=== PATIENT | male | born 1970 | race Caucasian/White ===

== ENCOUNTER 2024-12-18 18:56 | Emergency (ER) | payer SELFPAY ==
[2024-12-18 19:01] VITALS: BP 147/97
[2024-12-18 19:49] LABS: ALT (SGPT) 36 U/L (0-50); AST (SGOT) 41 U/L (17-59); Albumin 4.6 g/dl (3.5-5.0); Alkaline Phosphatase 83 U/L (38-126); Blood Urea Nitrogen 10 mg/dl (9-20); Calcium 9.4 mg/dl (8.4-10.2); Carbon Dioxide 28 mmol/L (22-30); Chloride 96 mmol/L (98-107); Glucose 101 mg/dl (70-99); Potassium 4.7 mmol/L (3.5-5.1); Sodium 136 mmol/L (135-145); Total Bilirubin 0.7 mg/dl (0.2-1.3); Total Protein 7.7 g/dl (6.3-8.2); eGFR > 60.00
[2024-12-18 19:59] LABS: Alcohol 345 mg/dl
[2024-12-18 20:00] LABS: Hematocrit 46.4 % (39.0-52.0); Hemoglobin 16.1 g/dL (13.0-18.0); Mean Corp Hgb Conc. 34.7 g/dL (33.0-37.0); Mean Corpuscular Hgb 32.1 pg (27.0-31.0); Mean Corpuscular Volume 92.6 fL (80.0-94.0); Mean Platelet Volume 9.3 fL (7.4-10.4); Platelet Count 274 10^3/uL (130-400); Red Blood Cell Count 5.01 10^6/uL (4.70-6.10); Red Cell Dist. Width 13.1 % (11.5-14.5); White Blood Cell Count 9.3 10^3/uL (4.8-10.8)
[2024-12-18 20:01] LABS: Absolute Neutrophils -Man Diff 5.3 10^3/uL (1.4-6.5); Atypical Lymphocytes 10 %; Band Neutrophils 0 % (0-3); Eosinophils 2 % (0-6); Lymphocytes 17 % (20-51); Monocytes 13 % (2-9); Segmented Neutrophils 58 % (42-75)
[2024-12-18 20:40] LABS: Normal RBC Morphology Yes; Platelets Checked Yes; Total Cells Counted 100
--- NOTE | 2024-12-18 20:51 | ED.GENMED ---
History of Present Illness
General
Chief Complaint: Alcohol Problem
Source: patient
Exam Limitations: none
Time Seen by Provider: 12/18/24 20:26
History of Present Illness
History of Present Illness:
54yoM with a history of alcohol abuse, anxiety, and depression presenting for detox evaluation. Patient drinks approximately 12-16 beers a day. Last drink was at dinnertime this evening. He is presenting to the ED requesting detox and treatment.
He denies any withdrawal symptoms currently. He does take Xanax as needed at home and typically takes 1-2 doses a week. He denies any other substance use. He reports a history of 1 prior withdrawal seizure in the past.
Past History
Past History
ED Past Medical History: Seizures and Psychiatric (anxiety/depression/ alcoholism)
ED Past Surgical History: None
Social History
Tobacco: Former smoker
Alcohol: Binge drinker (Beer 6-6 packs)
Drug: None
Personal: Single
Living: homeless (Living in his car right now)
Employment: Not employed
Phy Exam
General Physical Exam
General Presentation: well appearing and no apparent distress
General age: appears stated age
General Skin: warm and dry
General Habitus: normal
General Mental: alert
ENT Exam
ENT Exam: normocephalic
Cardiovascular Exam
Cardiovascular Exam: tachycardia
Pulmonary Exam
Pulmonary Exam: lungs clear, no respiratory distress, no rales, no crackles and no rhonchi
Neurological Exam
Neurological Exam: alert
Skin Exam
Skin Exam: normal color and warm/dry
Psychiatric Exam
Psychiatric Exam: normal mood/affect
Scores
Withdrawal Assessment of Alcohol
Withdrawal Assessment Completed?: Not applicable
Course
Orders/Labs/Results
Orders:
Orders
12/18/24 19:08
Alcohol Urgent
Comprehensive Metabolic Panel Urgent
Magnesium Urgent
Comment: ADD ON
12/18/24 19:10
Complete Blood Count/With Diff Urgent
Manual Differential Urgent
12/18/24 20:51
Add On- LAB Urgent
Tests Added?: magnesium
Abnormal Lab Results
12/18/24 12/18/24
19:08 19:10
MCH 32.1 H pg
(27.0-31.0)
Lymphocytes (Manual) 17 L %
(20-51)
Monocytes (Manual) 13 H %
(2-9)
Chloride 96 L mmol/L
(98-107)
Glucose 101 H mg/dl
(70-99)
12/18/24 19:10
12/18/24 19:08
Vital Signs
Initial and Last Documented VS:
Initial Vital Signs
Temp Pulse Resp BP Pulse Ox
98.6 F 110 20 147/97 98
12/18/24 19:01 12/18/24 19:01 12/18/24 19:01 12/18/24 19:01 12/18/24 19:01
Last Documented Vital Signs
Temp Pulse Resp BP Pulse Ox
98.6 F 110 20 147/97 98
12/18/24 19:01 12/18/24 19:01 12/18/24 19:01 12/18/24 19:01 12/18/24 19:01
MDM/Problems Addressed
Differential Diagnosis Includes:
54yoM presenting for detox evaluation. Drinks 12-16 beers daily. Last drink this evening. No current withdrawal symptoms. Heart rate 110. Remainder of vitals are normal. Patient is well-appearing in no distress. Differential diagnosis
includes but is not limited to: Alcohol intoxication, alcohol withdrawal, dehydration, electrolyte abnormality
Initial ED plan: Lab work obtained in triage. Chloride 96. Remainder of electrolytes are normal. Creatinine and LFTs within normal limits. Alcohol level 345. Will consult [facility] to assist with detox placement.
*Critical Care Note
Total Time (30-74mins, 75-104mins- exclusive of procedures): Not Applicable
Update Note
Update Note:
Informed by nursing staff that patient eloped prior to [facility] assessment. Patient drove here via private vehicle. Given EtOH level of 345, police were called and notified of situation. Police to go to his address for welfare check.
ED Attending Note
-
Portions of this chart may have been created with voice recognition software.� Occasional wrong word or��sound alike� substitutions may have occurred due to the inherent limitations of voice recognition software.
Discharge Plan
Departure
Patient Disposition: Against Medical Advice
Discharge Problem:
Alcohol intoxication
Prescriptions:
No Action
paroxetine HCl 20 mg tablet
20 mg PO DAILY
thiamine HCl (vitamin B1) 100 mg Tablet
100 mg PO BID Qty: 0 0RF
folic acid 1 mg Tablet
1 mg PO DAILY Qty: 0 0RF
metoprolol tartrate 25 mg Tablet
25 mg PO BID Qty: 0 0RF
Referrals:
Sanjeev Valero MD [Family Provider] -
Interventions
Interventions:
*Risk Screen - Suicide Last Done: 12/18/24 19:01
*General Assessment Last Done: 12/18/24 19:01
*Neglect/Abuse Screening Last Done: 12/18/24 19:01
ED- Neurological Assessment Last Done: 12/18/24 20:49
ED-Psychological Assessment Last Done: 12/18/24 20:49
Discharge Date and Time
Discharge Date/Time: 12/18/24 21:24
Print Language: ROMANSH
--- NOTE | 2024-12-18 21:16 | PTCARENOTE ---
Patient left emergency department
[2024-12-18 21:22] LABS: Magnesium 2.1 mg/dl (1.6-2.3)
== END 2024-12-18 21:24 | disposition left against medical advice (07) ==
LOC: EMR 18:56
PROVIDERS: Emergency Medicine; EMERGENCY PHYSICIAN Emergency Medicine; FAMILY PHYSICIAN Internal Medicine
DX: F10.129 Alcohol abuse with intoxication, unspecified (principal); Y90.9 Presence of alcohol in blood, level not specified; F41.8 Other specified anxiety disorders; Z87.891 Personal history of nicotine dependence
CPT/HCPCS: 99283; 80053; 82077; 83735; 85025

== ENCOUNTER 2024-12-23 23:29 | Emergency (ER) | payer SELFPAY ==
[2024-12-23 23:32] VITALS: BP 150/108
[2024-12-23 23:47] VITALS: BMI 34.0
--- NOTE | 2024-12-23 23:59 | ED.GENMED ---
History of Present Illness
General
Chief Complaint: Suicidal Ideation
Source: patient
Exam Limitations: none
Time Seen by Provider: 12/23/24 23:39
History of Present Illness
History of Present Illness:
See MDM
Past History
Past History
ED Past Medical History: Seizures and Psychiatric (anxiety/depression/ alcoholism)
ED Past Surgical History: None
Social History
Tobacco: Former smoker
Alcohol: Binge drinker (Beer 6-6 packs)
Drug: None
Personal: Single
Living: homeless (Living in his car right now)
Employment: Not employed
Phy Exam
Physical Exam
Physical Exam:
See MDM
Course
Orders/Labs/Results
Orders:
Orders
12/23/24 23:36
1:1 Observation - Suicide/ Violent Behavior As Directed
Crisis Consult Urgent
Reason for Consult: SUICIDAL IDEATION/ALCOHOL ABUSE
12/23/24 23:57
Alcohol Urgent
Complete Blood Count/With Diff Urgent
Comprehensive Metabolic Panel Urgent
12/24/24 00:32
Urine Drug Abuse Screen Urgent
Date Specimen was Collected: 12/24/24
Time Specimen was Collected: 00:30
Abnormal Lab Results
12/24/24
00:10
MCH 31.9 H pg
(27.0-31.0)
Neutrophils % 37.1 L %
(42.2-75.2)
Lymphocytes % 53.3 H %
(20.5-51.1)
BUN 7 L mg/dl
(9-20)
Glucose 134 H mg/dl
(70-99)
Total Protein 8.4 H g/dl
(6.3-8.2)
12/24/24 00:10
12/24/24 00:10
Vital Signs
Initial and Last Documented VS:
Initial Vital Signs
Temp Pulse Resp BP Pulse Ox
98 F 96 22 150/108 98
12/23/24 23:32 12/23/24 23:32 12/23/24 23:32 12/23/24 23:32 12/23/24 23:32
Last Documented Vital Signs
Temp Pulse Resp BP Pulse Ox
97.8 F 97 18 149/89 97
12/24/24 00:01 12/24/24 00:01 12/24/24 00:01 12/24/24 00:01 12/24/24 00:01
MDM/Problems Addressed
Differential Diagnosis Includes:
HPI and MDM Narrative:
54-year-old male presenting for evaluation of suicidal thoughts. Patient states the police were called because he was living in his car for the past 4 days in a [facility] parking lot. The police were called on him. He told the police about his
suicidal thoughts and was sent to emergency department. Patient is mildly intoxicated. Will have crisis evaluate
Physical exam
General: Well appearing and non-toxic
HEENT: protecting airway
Neck: appears supple
CV: No evidence of cyanosis
Resp: No accessory muscle use
Abd: Non-distended
Extremities: No deformities
Neuro: alert.
Psych: Flat affect. Mildly intoxicated
Skin: Intact
Problems Addressed including Acute and Chronic Conditions affecting care:
1. Depression and alcohol use disorder
Acuity: acute
Prognosis: stable
Details: Patient states that his depression and suicidal thoughts have gotten worse
Updates
Crisis evaluated and will look for dual placement
Differential Diagnosis (but not limited to): Alcohol use disorder, depression
Testing considered: Urinalysis
Drug therapy (if applicable): OTC meds, please see d/c instruction regarding Rx drugs
Amount and/or Complexity of Data Reviewed
Clinical info obtained from: Patient
External data reviewed: N/A
Labs I independently reviewed (but not limited to): wbc normal
Radiology: N/A
Pulse Ox: not hypoxic
EKG independently reviewed: N/A
Shaker Screen Operator: N/A
Critical Care: N/A
Risk of Complication:
Social Determinants of health: Poor social support
Discussed with other providers: Crisis
Escalation of Care includes Admit/Obs: Given suicidal thoughts and alcohol use disorder, crisis will work on dual place
Occasional wrong word or 'sound a like' substitutions may have occurred due to the inherent limitations of voice recognition software. Read the chart carefully and recognize, using context, where substitutions have occurred.
*Critical Care Note
Total Time (30-74mins, 75-104mins- exclusive of procedures): Not Applicable
ED Attending Note
-
Portions of this chart may have been created with voice recognition software.� Occasional wrong word or��sound alike� substitutions may have occurred due to the inherent limitations of voice recognition software.
Discharge Plan
Departure
Patient Disposition: Psych Facility
Date of Disposition: 12/24/24
Time of Disposition: 00:46
Discharge Problem:
Suicidal thoughts, Alcohol use disorder
Prescriptions:
No Action
paroxetine HCl 20 mg tablet
20 mg PO DAILY
thiamine HCl (vitamin B1) 100 mg Tablet
100 mg PO BID Qty: 0 0RF
folic acid 1 mg Tablet
1 mg PO DAILY Qty: 0 0RF
metoprolol tartrate 25 mg Tablet
25 mg PO BID Qty: 0 0RF
Referrals:
UNKNOWN - PT DOES,NOT KNOW [Family Provider] -
Interventions
Interventions:
*Risk Screen - Suicide Last Done: 12/23/24 23:32
*General Assessment Last Done: 12/23/24 23:47
*Neglect/Abuse Screening Last Done: 12/23/24 23:32
*ED- Fall Risk Assessment Last Done: 12/23/24 23:47
*ED COVID-19 Vaccine History Last Done: 12/23/24 23:47
ED-Psychological Assessment Last Done: 12/23/24 23:47
Discharge Date and Time
Print Language: SWAZI
[2024-12-24 00:01] VITALS: BP 149/89
[2024-12-24 00:28] LABS: % Eosinophils 0.8 % (0-6); % Lymphocytes 53.3 % (20.5-51.1); % Monocytes 7.8 % (1.7-9.3); % Neutrophils 37.1 % (42.2-75.2); Absolute Basophils 0.1 10^3/uL (0-0.2); Absolute Lymphocytes 2.7 10^3/uL (1.2-3.4); Absolute Monocytes 0.4 10^3/uL (0.1-0.6); Absolute Neutrophils 1.9 10^3/uL (1.4-6.5); Hematocrit 47.6 % (39.0-52.0); Hemoglobin 16.6 g/dL (13.0-18.0); Mean Corp Hgb Conc. 34.9 g/dL (33.0-37.0); Mean Corpuscular Hgb 31.9 pg (27.0-31.0); Mean Corpuscular Volume 91.5 fL (80.0-94.0); Nucleated Red Blood Cells % 0 % (-); Platelet Count 264 10^3/uL (130-400); Red Cell Dist. Width 13.5 % (11.5-14.5); White Blood Cell Count 5.1 10^3/uL (4.8-10.8)
[2024-12-24 00:42] LABS: ALT (SGPT) 44 U/L (0-50); AST (SGOT) 57 U/L (17-59); Albumin 4.9 g/dl (3.5-5.0); Alkaline Phosphatase 93 U/L (38-126); Blood Urea Nitrogen 7 mg/dl (9-20); Calcium 8.6 mg/dl (8.4-10.2); Carbon Dioxide 25 mmol/L (22-30); Chloride 102 mmol/L (98-107); Estimated Creatinine Clearance 124 ml/min; Glucose 134 mg/dl (70-99); Potassium 4.5 mmol/L (3.5-5.1); Sodium 145 mmol/L (135-145); Total Bilirubin 0.7 mg/dl (0.2-1.3); Total Protein 8.4 g/dl (6.3-8.2); eGFR > 60.00
[2024-12-24 01:07] LABS: Alcohol 415 mg/dl
[2024-12-24 01:10] LABS: Amphetamines Negative (Negative); Barbiturates Negative (Negative); Benzodiazepines Positive (Negative); Buprenorphine Negative (Negative); Cocaine Negative (Negative); Marijuana Negative (Negative); Methadone Negative (Negative); Methamphetamines Negative (Negative); Opiates Negative (Negative); Phencyclidine Negative (Negative); Tricyclic Antidepressants Positive (Negative)
[2024-12-24 02:47] LABS: Fentanyl, Urine Negative (Negative)
[2024-12-24 07:28] VITALS: BP 112/64
[2024-12-24 09:02] LABS: Alcohol 177 mg/dl
[2024-12-24 11:02] VITALS: BP 136/80
== END 2024-12-24 11:22 ==
LOC: EMR 23:29
PROVIDERS: Student in an Organized Health Care Education/Training Program; EMERGENCY PHYSICIAN Student in an Organized Health Care Education/Training Program
DX: R45.851 Suicidal ideations (principal); F10.129 Alcohol abuse with intoxication, unspecified; Z60.8 Other problems related to social environment; F32.A Depression, unspecified; F41.9 Anxiety disorder, unspecified; Z59.02 Unsheltered homelessness; Z87.891 Personal history of nicotine dependence
CPT/HCPCS: 99283; 80053; 80306; 80307; 82077; 85025

== ENCOUNTER 2025-01-03 14:42 | Emergency (ER) | payer SELFPAY ==
[2025-01-03 15:10] VITALS: BP 100/74
--- NOTE | 2025-01-03 16:05 | ED.GENMED ---
History of Present Illness
General
Chief Complaint: Alcohol Problem
Source: patient
Exam Limitations: none
Time Seen by Provider: 01/03/25 15:28
Nursing documentation reviewed up to this point in time: agreed with
History of Present Illness
History of Present Illness:
Patient presents to ED for evaluation after he was found sleeping inside his car, parked at local [employer] store. Patient presents intoxicated and states that he lives in his car. Patient does admit to drinking alcohol, including today. However,
patient denies any suicidal or homicidal ideation. Patient otherwise has no complaints and wishes to be discharged back to his car.
Past History
Past History
ED Past Medical History: Seizures and Psychiatric (anxiety/depression/ alcoholism)
ED Past Surgical History: None
Social History
Tobacco: Former smoker
Alcohol: Binge drinker (Beer 6-6 packs)
Drug: None
Personal: Single
Living: homeless (Living in his car right now)
Employment: Not employed
Review of Systems
Review of Systems
Allergies reviewed?: Yes
All Other Systems: Not applicable
Constitutional: Reports no symptoms; Denies fever
EENT: Reports no symptoms
Respiratory: Reports no symptoms; Denies cough
Cardiac: Reports no symptoms; Denies chest pain
ABD/GI: Reports no symptoms; Denies vomiting
Musculoskeletal: Reports no symptoms
Skin: Reports no symptoms
Neurological: Reports no symptoms
Phy Exam
Physical Exam
Physical Exam:
Physical Exam
General: no apparent distress, not acutely ill. afebrile and unkempt.
Head: nc/at. eomi
Neck: supple. no meningeal signs.
Heart: s1/s2 regular rate and rhythm
Lungs: no acute respiratory distress.
Abdomen: normal bowel sounds. not tender.
Neuro: alert and oriented x 3. no focal neurological deficits
Skin: no rash
Psychiatric: well kept. interactive and cooperative
Extremities: no edema. no calf tenderness.
Scores
Withdrawal Assessment of Alcohol
Withdrawal Assessment Completed?: Not applicable
Course
Orders/Labs/Results
Orders:
Orders
01/03/25 16:49
0.9% Sodium Chloride 500 ml [Nss] 500 ml IV BOLUS
01/03/25 17:49
Acetaminophen Urgent
Alcohol Urgent
Complete Blood Count/No Diff Urgent
Comprehensive Metabolic Panel Urgent
Magnesium Urgent
Salicylate Urgent
Abnormal Lab Results
01/03/25
17:49
MCH 32.4 H pg
(27.0-31.0)
Carbon Dioxide 31 H mmol/L
(22-30)
BUN 7 L mg/dl
(9-20)
Glucose 146 H mg/dl
(70-99)
AST 68 H U/L
(17-59)
ALT 78 H U/L
(0-50)
Salicylates < 1.0 L mg/dl
(2.0-20.0)
Acetaminophen < 10 L ug/ml
(10-30)
01/03/25 17:49
01/03/25 17:49
Vital Signs
Initial and Last Documented VS:
Initial Vital Signs
Temp Pulse Resp BP Pulse Ox
98.4 F 101 17 100/74 92
01/03/25 15:10 01/03/25 15:10 01/03/25 15:10 01/03/25 15:10 01/03/25 15:10
Last Documented Vital Signs
Temp Pulse Resp BP Pulse Ox
98.4 F 93 18 111/69 96
01/03/25 15:10 01/04/25 03:49 01/04/25 03:49 01/04/25 03:45 01/04/25 03:46
MDM/Problems Addressed
MDM/Problems Addressed:
Patient evaluated in ED by Ashlie. Patient will be transferred to inpatient rehab/detox center for further evaluation and treatment.
Alcohol level noted. Patient remains alert and awake, without any distress. Patient medically cleared.
Unfortunately, during observation, patient changed his mind and would like to be discharged from the ED. Attempted to call his mother and other family members, who unfortunately are not able to be present to pick him up. As such, patient will be
observed further in ED until he is clinically sober and be discharged.
*Critical Care Note
Total Time (30-74mins, 75-104mins- exclusive of procedures): Not Applicable
ED Attending Note
-
Portions of this chart may have been created with voice recognition software.� Occasional wrong word or��sound alike� substitutions may have occurred due to the inherent limitations of voice recognition software.
Discharge Plan
Departure
Patient Disposition: Home (Routine Discharge)
Date of Disposition: 01/03/25
Time of Disposition: 18:57
Patient with high blood pressure during this ER visit?: Yes
Discharge Problem:
Alcohol dependence
Instructions: Alcohol Use Disorder (DC)
Prescriptions:
No Action
paroxetine HCl 20 mg tablet
20 mg PO DAILY
thiamine HCl (vitamin B1) 100 mg Tablet
100 mg PO BID Qty: 0 0RF
folic acid 1 mg Tablet
1 mg PO DAILY Qty: 0 0RF
metoprolol tartrate 25 mg Tablet
25 mg PO BID Qty: 0 0RF
Referrals:
UNKNOWN - PT DOES,NOT KNOW [Family Provider] -
Activity Restrictions/Additional Instructions:
As discussed, strongly recommend that you follow-up with outpatient detox center to assist with alcohol cessation.
Interventions
Interventions:
*Risk Screen - Suicide Last Done: 01/03/25 15:09
*General Assessment Last Done: 01/03/25 17:47
*Neglect/Abuse Screening Last Done: 01/03/25 15:09
*ED- Fall Risk Assessment Last Done: 01/03/25 15:09
*ED COVID-19 Vaccine History Last Done: 01/03/25 15:09
*Nursing Disposition Last Done: 01/04/25 06:46
ED- Neurological Assessment Last Done: 01/03/25 17:58
ED-Psychological Assessment Last Done: 01/03/25 17:58
Discharge Date and Time
Discharge Date/Time: 01/04/25 06:51
Print Language: [email or web address]
[2025-01-03 17:46] VITALS: BMI 36.7
[2025-01-03] MEDS: NSS 500 IV (17:52)
[2025-01-03 17:53] VITALS: BP 113/73
[2025-01-03 17:57] VITALS: BP 113/73
[2025-01-03 17:59] LABS: Hemoglobin 15.3 g/dL (13.0-18.0); Mean Corp Hgb Conc. 35.6 g/dL (33.0-37.0); Mean Corpuscular Hgb 32.4 pg (27.0-31.0); Mean Corpuscular Volume 91.1 fL (80.0-94.0); Mean Platelet Volume 9.2 fL (7.4-10.4); Platelet Count 272 10^3/uL (130-400); Red Blood Cell Count 4.72 10^6/uL (4.70-6.10); Red Cell Dist. Width 13.1 % (11.5-14.5); White Blood Cell Count 4.8 10^3/uL (4.8-10.8)
[2025-01-03 18:14] LABS: ALT (SGPT) 78 U/L (0-50); AST (SGOT) 68 U/L (17-59); Acetaminophen < 10 ug/ml (10-30); Albumin 4.3 g/dl (3.5-5.0); Alkaline Phosphatase 89 U/L (38-126); Blood Urea Nitrogen 7 mg/dl (9-20); Calcium 8.8 mg/dl (8.4-10.2); Carbon Dioxide 31 mmol/L (22-30); Chloride 103 mmol/L (98-107); Estimated Creatinine Clearance 97 ml/min; Glucose 146 mg/dl (70-99); Magnesium 1.9 mg/dl (1.6-2.3); Potassium 4.7 mmol/L (3.5-5.1); Salicylate < 1.0 mg/dl (2.0-20.0); Sodium 145 mmol/L (135-145); Total Bilirubin 0.7 mg/dl (0.2-1.3); Total Protein 7.4 g/dl (6.3-8.2); eGFR > 60.00
[2025-01-03 18:24] LABS: Alcohol 373 mg/dl
[2025-01-03 19:00] VITALS: BP 107/73
[2025-01-04 00:02] VITALS: BP 110/72
[2025-01-04 00:04] VITALS: BP 110/72
[2025-01-04 03:45] VITALS: BP 111/69
== END 2025-01-04 06:51 | disposition home or self-care (01) ==
LOC: EMR 14:42
PROVIDERS: EMERGENCY PHYSICIAN Emergency Medicine
DX: F10.220 Alcohol dependence with intoxication, uncomplicated (principal); R03.0 Elevated blood-pressure reading, without diagnosis of hypertension; Z59.02 Unsheltered homelessness; Z87.891 Personal history of nicotine dependence
CPT/HCPCS: 99284; 96360; 80053; 80143; 80179; 82077; 83735; 85027

== ENCOUNTER 2025-01-24 22:49 | Inpatient (IN) | payer OTHER, SELFPAY ==
--- NOTE | 2025-01-24 20:30 | ED.GENMED ---
History of Present Illness
<Nicole Grossman PA-C - Last Filed: 01/24/25 23:03>
General
Chief Complaint: Alcohol Problem
Source: patient
Exam Limitations: none
Time Seen by Provider: 01/24/25 20:14
Nursing documentation reviewed up to this point in time: agreed with
History of Present Illness
History of Present Illness:
pt is a 54 y/o M with h/o PAF
alcohol abuse
anxiety/depression
got evicted from his house (where he was living with his mom) and has been living on the [address], specifically apparently outside a [place] where he would obtain alcohol and drink daily
he has been binge drinkign 'several strong beers' a day
he has not been eating, no meds
he is chronically on xanax, hasn't had any in 2 weeks
he feels currently anxious, shaky, nauseated, mild heaadche
he has no confusion, hallucination, vomiting, tactile hallucinations
he has had alcohol withdrawal seizure before
last rehab about 8 mo ago
pt has been lying on the ground, soiled, wet
he has wounds in his inguinal region, buttocks, legs and has maggots within his wounds
Past History
<Nicole Grossman PA-C - Last Filed: 01/24/25 23:03>
Past History
ED Past Medical History: Seizures and Psychiatric (anxiety/depression/ alcoholism)
ED Past Surgical History: None
Social History
Tobacco: Former smoker
Alcohol: Binge drinker (Beer 6-6 packs)
Drug: None
Personal: Single
Living: homeless (Living in his car right now)
Employment: Not employed
Review of Systems
<Nicole Grossman PA-C - Last Filed: 01/24/25 23:03>
Review of Systems
Allergies reviewed?: Yes
All Other Systems: Not applicable
Phy Exam
<Nicole Grossman PA-C - Last Filed: 01/24/25 23:03>
Physical Exam
Physical Exam:
GENERAL: alert, anxious, unkept,
head: ncat
EYE: pupils equal and reactive
NECK: Supple
ENT: o/p clr, mouth dry
CARDIAC: tachycracid
LUNGS: Clear breath sounds bilaterally, no acute respiratory distress, no wheezes/rales/rhonchi
ABDOMEN: Soft, without focal tenderness, no r/g, no cvat, normal bowel sounds
NEUROLOGICAL: Alert and oriented, no focal neuro deficits, moving all extrmieties
SKIN: severe breakdown on b/l thighs, erythema with inguinal region
in the groin and skin fold pt has many maggots
they are in between his toes
but his feel do not look infected
the skin of his groin/perineum/inguinal region looks like SSS
MUSCULOSKELETAL : swollen in the thighs, moving all extremiteis; pulses intact;
PSYCH: Normal and appropriate interaction.
Scores
<Nicole Grossman PA-C - Last Filed: 01/24/25 23:03>
Withdrawal Assessment of Alcohol
Withdrawal Assessment Completed?: Yes
Nausea and Vomiting: Mild nausea with no vomiting
Tactile Disturbances: None
Tremor: Moderate, with patient's arms extended
Auditory Disturbances: Not present
Paroxysmal Sweats: No sweat visible
Visual Disturbances: Not present
Anxiety: Moderately anxious, or guarded, so anxiety is inferred
Headache, Fullness in Head: Very mild
Agitation: Normal activity
Orientation and clouding of sensorium: Oriented and can do serial additions
Total CIWA Score: 10
Alcohol Withdrawal Medication Recommendation: Equal to MSAS Score 5-7. Lorazepam 1mg IV or PO NOW & re-assess q2hrs
<Evelyn Alfaro MD - Last Filed: 01/24/25 23:06>
Withdrawal Assessment of Alcohol
Total CIWA Score: 10
Alcohol Withdrawal Medication Recommendation: Equal to MSAS Score 5-7. Lorazepam 1mg IV or PO NOW & re-assess q2hrs
Course
<Nicole Grossman PA-C - Last Filed: 01/24/25 23:03>
Orders/Labs/Results
Orders:
Orders
01/24/25 20:29
Add On- LAB Urgent
Tests Added?: alcohol, magnesium, cpk
0.9% Sodium Chloride 1000 ml [Nss] 1,000 ml IV BOLUS
Lorazepam [Ativan] 2 mg IV NOW STA
Thiamine Injection 200 mg IV NOW STA
01/24/25 20:32
Electrocardiogram (*1) Urgent
Reason for Study: Bradycardia / Tachycardia
EKG- Treatment ONCE
01/24/25 20:36
Ondansetron Injectable [Zofran] 4 mg IV NOW STA
01/24/25 20:38
Alcohol Urgent
Complete Blood Count/With Diff Urgent
Comprehensive Metabolic Panel Urgent
Creatine Phosphokinase Urgent
Lactic Acid Urgent
Magnesium Urgent
Manual Differential Urgent
Venous Blood Gas Urgent
%Oxygen/Room Air: 21
Blood Culture Q30M
ARIANNA Source: Blood/Venous
Specimen Description:
01/24/25 20:44
Blood Culture Q30M
ARIANNA Source: Blood/Venous
Specimen Description:
01/24/25 20:53
Piperacillin/Tazo 3.375 Gram [Zosyn] 3.375 gram in 50 ml IV NOW
01/24/25 21:00
Dextrose 5%/0.9%Sodchl 1000 ml [D5/0.9% Sodium Chloride] 1,000 ml IV 1,000 mls/hr
Dextrose 5%/0.9%Sodchl 1000 ml [D5/0.9% Sodium Chloride] 1,000 ml IV Wide Open mls/hr
FOLic ACID [Folvite] 1 mg 0.9% Sodium Chloride 50 ml [Nss] 50 ml IV ONCE
Vancomycin [Vancocin] 2,000 mg 0.9% Sodium Chloride 500 ml [Nss] 500 ml IV NOW
01/24/25 21:32
0.9% Sodium Chloride 1000 ml [Nss] 1,000 ml IV BOLUS
01/24/25 21:33
CT Abd/Pel (IV only)-DH only Urgent
Comment:
Reason For Exam: concern for fornier's; sepsis, wounds
Choudhary Placement- Treatment ONCE
Reason for insertion: I&O's Critical Care
Drug Screen, Urine [Urine Drug Abuse Screen] Routine
Date Specimen was Collected: 01/24/25
Time Specimen was Collected: 22:58
Osmolality, Random Urine Urgent
Date Specimen was Collected: 01/24/25
Time Specimen was Collected: 22:58
Urine Sodium Urgent
Date Specimen was Collected: 01/24/25
Time Specimen was Collected: 22:58
01/24/25 22:00
Flush (0.9% Sodium Chloride) [Flush (Nss)] See Dose Instructions IV PER PROTOCOL
01/24/25 22:16
CT Lower Ext W/iv Cont Lt Urgent
Comment:
Reason For Exam: deep space infection
CT Lower Ext W/iv Cont Rt Urgent
Comment:
Reason For Exam: deep space infection
01/24/25 22:21
Phenobarbital Sodium [Phenobarbital] 260 mg 0.9% Sodium Chloride 100 ml [Nss] 100 ml IV NOW
01/24/25 22:22
Admit/Transfer Patient As Directed
Co-Sign Provider:
Level of Care: Inpatient admission
Assign to:: ICU
Physician / Group: Sofia
Diagnosis: Severe Sepsis
Reason for Hospitalization: IVFs, IV abx
Expected length of stay greater than two midnights?: Yes
ELOS- Estimated Length of Stay in days: 3
I certify the patient meets the requirements for IP care: Yes
BMP [Basic Metabolic Panel] Stat
01/24/25 22:23
PRN Pain Medication Management As Directed
May give lesser potent ordered pain med per pt: Yes
preference::
Protocol:: Medication orders for pain may be administered in a
manner that supports deferring to patient preference
when the pt is:
- Requesting an ordered lesser potent pain medication.
Least to most potent pain medications are defined
as: acetaminophen < NSAID < tramadol < opioids
(morphine, oxycodone, hydromorphone).
- Requesting a lesser dose of the same medication IF
ORDERED.
- Requesting a less intrusive route of administration
if both routes are prescribed by the provider (PO <
IV).
01/24/25 22:27
Urinalysis Reflex To Culture Urgent
Date Specimen was Collected: 01/24/25
Time Specimen was Collected: 22:58
01/24/25 22:29
Code Status As Directed
Resuscitation Status: Full Code
01/24/25 22:39
Lactic Acid Urgent
01/25/25 00:30
Lactic Acid Q4H
Comment: repeat q4 hours x 4 or until less than 2 mmol/L
01/25/25 04:30
Lactic Acid Q4H
Comment: repeat q4 hours x 4 or until less than 2 mmol/L
01/25/25 08:00
Phenobarbital Sodium [Phenobarbital] 97.5 mg IV TID
01/25/25 08:30
Lactic Acid Q4H
Comment: repeat q4 hours x 4 or until less than 2 mmol/L
01/25/25 12:30
Lactic Acid Q4H
Comment: repeat q4 hours x 4 or until less than 2 mmol/L
01/27/25 08:00
Phenobarbital [Luminal] 64.8 mg PO TID
01/29/25 08:00
Phenobarbital [Luminal] 32.4 mg PO TID
Abnormal Lab Results
01/24/25
20:38
RBC 4.36 L 10^6/uL
(4.70-6.10)
Hct 38.3 L %
(39.0-52.0)
MCH 32.6 H pg
(27.0-31.0)
MCHC 37.1 H g/dL
(33.0-37.0)
Band Neutrophils 20 H %
(0-3)
Lymphocytes (Manual) 19 L %
(20-51)
Monocytes (Manual) 12 H %
(2-9)
VBG pH 7.46 H
(7.32-7.43)
VBG pCO2 30 L mmHg
(35-48)
VBG pO2 70 H mmHg
(30-50)
VBG HCO3 21.3 L mmol/L
(22-27)
Sodium 118 L* mmol/L
(135-145)
Chloride 72 L mmol/L
(98-107)
Carbon Dioxide 18 L mmol/L
(22-30)
Glucose 210 H mg/dl
(70-99)
Lactic Acid 11.5 H* mmol/L
(0.7-2.0)
Calcium 7.8 L mg/dl
(8.4-10.2)
Magnesium 1.4 L mg/dl
(1.6-2.3)
Total Bilirubin 1.4 H mg/dl
(0.2-1.3)
AST 105 H U/L
(17-59)
ALT 81 H U/L
(0-50)
Alkaline Phosphatase 173 H U/L
(38-126)
Creatine Kinase 659 H U/L
(55-170)
Total Protein 5.2 L g/dl
(6.3-8.2)
Albumin 3.0 L g/dl
(3.5-5.0)
01/24/25 20:38
01/24/25 20:38
Vital Signs
Initial and Last Documented VS:
Initial Vital Signs
Pulse Pulse Ox
123 100
01/24/25 20:26 01/24/25 20:26
Last Documented Vital Signs
Temp Pulse Resp BP Pulse Ox
99.2 F 122 19 142/92 96
01/24/25 21:23 01/24/25 21:15 01/24/25 21:15 01/24/25 21:00 01/24/25 21:15
<Evelyn Alfaro MD - Last Filed: 01/24/25 23:06>
Orders/Labs/Results
Orders:
Orders
01/24/25 20:29
Add On- LAB Urgent
Tests Added?: alcohol, magnesium, cpk
0.9% Sodium Chloride 1000 ml [Nss] 1,000 ml IV BOLUS
Lorazepam [Ativan] 2 mg IV NOW STA
Thiamine Injection 200 mg IV NOW STA
01/24/25 20:32
Electrocardiogram (*1) Urgent
Reason for Study: Bradycardia / Tachycardia
EKG- Treatment ONCE
01/24/25 20:36
Ondansetron Injectable [Zofran] 4 mg IV NOW STA
01/24/25 20:38
Alcohol Urgent
Complete Blood Count/With Diff Urgent
Comprehensive Metabolic Panel Urgent
Creatine Phosphokinase Urgent
Lactic Acid Urgent
Magnesium Urgent
Manual Differential Urgent
Venous Blood Gas Urgent
%Oxygen/Room Air: 21
Blood Culture Q30M
ARIANNA Source: Blood/Venous
Specimen Description:
04/25/25 20:44
Blood Culture Q30M
ARIANNA Source: Blood/Venous
Specimen Description:
01/24/25 20:53
Piperacillin/Tazo 3.375 Gram [Zosyn] 3.375 gram in 50 ml IV NOW
01/24/25 21:00
Dextrose 5%/0.9%Sodchl 1000 ml [D5/0.9% Sodium Chloride] 1,000 ml IV 1,000 mls/hr
Dextrose 5%/0.9%Sodchl 1000 ml [D5/0.9% Sodium Chloride] 1,000 ml IV Wide Open mls/hr
FOLic ACID [Folvite] 1 mg 0.9% Sodium Chloride 50 ml [Nss] 50 ml IV ONCE
Vancomycin [Vancocin] 2,000 mg 0.9% Sodium Chloride 500 ml [Nss] 500 ml IV NOW
01/24/25 21:32
0.9% Sodium Chloride 1000 ml [Nss] 1,000 ml IV BOLUS
01/24/25 21:33
CT Abd/Pel (IV only)-DH only Urgent
Comment:
Reason For Exam: concern for fornier's; sepsis, wounds
Choudhary Placement- Treatment ONCE
Reason for insertion: I&O's Critical Care
Drug Screen, Urine [Urine Drug Abuse Screen] Routine
Date Specimen was Collected: 01/24/25
Time Specimen was Collected: 22:58
Osmolality, Random Urine Urgent
Date Specimen was Collected: 01/24/25
Time Specimen was Collected: 22:58
Urine Sodium Urgent
Date Specimen was Collected: 01/24/25
Time Specimen was Collected: 22:58
01/24/25 22:00
Flush (0.9% Sodium Chloride) [Flush (Nss)] See Dose Instructions IV PER PROTOCOL
01/24/25 22:16
CT Lower Ext W/iv Cont Lt Urgent
Comment:
Reason For Exam: deep space infection
CT Lower Ext W/iv Cont Rt Urgent
Comment:
Reason For Exam: deep space infection
01/24/25 22:21
Phenobarbital Sodium [Phenobarbital] 260 mg 0.9% Sodium Chloride 100 ml [Nss] 100 ml IV NOW
01/24/25 22:22
Admit/Transfer Patient As Directed
Co-Sign Provider:
Level of Care: Inpatient admission
Assign to:: ICU
Physician / Group: Sofia
Diagnosis: Severe Sepsis
Reason for Hospitalization: IVFs, IV abx
Expected length of stay greater than two midnights?: Yes
ELOS- Estimated Length of Stay in days: 3
I certify the patient meets the requirements for IP care: Yes
BMP [Basic Metabolic Panel] Stat
01/24/25 22:23
PRN Pain Medication Management As Directed
May give lesser potent ordered pain med per pt: Yes
preference::
Protocol:: Medication orders for pain may be administered in a
manner that supports deferring to patient preference
when the pt is:
- Requesting an ordered lesser potent pain medication.
Least to most potent pain medications are defined
as: acetaminophen < NSAID < tramadol < opioids
(morphine, oxycodone, hydromorphone).
- Requesting a lesser dose of the same medication IF
ORDERED.
- Requesting a less intrusive route of administration
if both routes are prescribed by the provider (PO <
IV).
01/24/25 22:27
Urinalysis Reflex To Culture Urgent
Date Specimen was Collected: 01/24/25
Time Specimen was Collected: 22:58
01/24/25 22:29
Code Status As Directed
Resuscitation Status: Full Code
01/24/25 22:39
Lactic Acid Urgent
01/25/25 00:30
Lactic Acid Q4H
Comment: repeat q4 hours x 4 or until less than 2 mmol/L
01/25/25 04:30
Lactic Acid Q4H
Comment: repeat q4 hours x 4 or until less than 2 mmol/L
01/25/25 08:00
Phenobarbital Sodium [Phenobarbital] 97.5 mg IV TID
01/25/25 08:30
Lactic Acid Q4H
Comment: repeat q4 hours x 4 or until less than 2 mmol/L
01/25/25 12:30
Lactic Acid Q4H
Comment: repeat q4 hours x 4 or until less than 2 mmol/L
01/27/25 08:00
Phenobarbital [Luminal] 64.8 mg PO TID
01/29/25 08:00
Phenobarbital [Luminal] 32.4 mg PO TID
Abnormal Lab Results
01/24/25
20:38
RBC 4.36 L 10^6/uL
(4.70-6.10)
Hct 38.3 L %
(39.0-52.0)
MCH 32.6 H pg
(27.0-31.0)
MCHC 37.1 H g/dL
(33.0-37.0)
Band Neutrophils 20 H %
(0-3)
Lymphocytes (Manual) 19 L %
(20-51)
Monocytes (Manual) 12 H %
(2-9)
VBG pH 7.46 H
(7.32-7.43)
VBG pCO2 30 L mmHg
(35-48)
VBG pO2 70 H mmHg
(30-50)
VBG HCO3 21.3 L mmol/L
(22-27)
Sodium 118 L* mmol/L
(135-145)
Chloride 72 L mmol/L
(98-107)
Carbon Dioxide 18 L mmol/L
(22-30)
Glucose 210 H mg/dl
(70-99)
Lactic Acid 11.5 H* mmol/L
(0.7-2.0)
Calcium 7.8 L mg/dl
(8.4-10.2)
Magnesium 1.4 L mg/dl
(1.6-2.3)
Total Bilirubin 1.4 H mg/dl
(0.2-1.3)
AST 105 H U/L
(17-59)
ALT 81 H U/L
(0-50)
Alkaline Phosphatase 173 H U/L
(38-126)
Creatine Kinase 659 H U/L
(55-170)
Total Protein 5.2 L g/dl
(6.3-8.2)
Albumin 3.0 L g/dl
(3.5-5.0)
01/24/25 20:38
01/24/25 20:38
Vital Signs
Initial and Last Documented VS:
Initial Vital Signs
Pulse Pulse Ox
123 100
01/24/25 20:26 01/24/25 20:26
Last Documented Vital Signs
Temp Pulse Resp BP Pulse Ox
99.2 F 122 19 142/92 96
01/24/25 21:23 01/24/25 21:15 01/24/25 21:15 01/24/25 21:00 01/24/25 21:15
<Nicole Grossman PA-C - Last Filed: 01/24/25 23:03>
MDM/Problems Addressed
Differential Diagnosis Includes:
sepsis, niya's, nec fasc, alcohol withdrawal
MDM/Problems Addressed:
room 27 is ICU admission
susu jacob 54 y/o alcoholic, h/o withdrawal seizure
on street for 2 weeks, lying on ground, wet, skin breakdown all in his perineum/gu/buttock region, thighs; looks like SSS
given location and his acuity, ? niya's
he's tachy and bp is dropping slightly, low 100s
mentating ok, answering questions
he has wbc 6, AG 28, lactate 11, na 118, cl 7, alcohol 141, venous ph 7.46
bicarb 18;
he got ativan, 1 L NSS so far
nephrology diodato consulted, recommended a 2nd liter normal now, then repeat NA and if dropping then hypertonic saline 3% 30 cc/hr
i did order a CT scan because of the wounds/location and lactic to eval for deep space infection; d/w marline who agree
medically stabilize and admit, ct scan, abx
<Nicole Grossman PA-C - Last Filed: 01/24/25 23:03>
*Critical Care Note
Total Time (30-74mins, 75-104mins- exclusive of procedures): Not Applicable
<Evelyn Alfaro MD - Last Filed: 01/24/25 23:06>
*Critical Care Note
comment:
45 minutes of critical care given to the patient by me including reviewing his blood work, reassessing his heart rate and blood pressure, as well as discussing the case with the hospitalist, and reviewing his CT imaging
ED Attending Note
<Nicole Grossman PA-C - Last Filed: 01/24/25 23:03>
-
Portions of this chart may have been created with voice recognition software.� Occasional wrong word or��sound alike� substitutions may have occurred due to the inherent limitations of voice recognition software.
<Evelyn Alfaro MD - Last Filed: 01/24/25 23:06>
ED Attending Note
Patient seen and examined by attending physician: Yes
I performed the substantive portion of visit, reviewed & personally made and approve the management plan that is documented in note by myself or BRAXTON.: Yes
ED Attending Note:
Patient has extensive erythema and skin breakdown of his bilateral upper extremities and perineal area. He is tachycardic but breathing comfortably.
Discharge Plan
Departure
Patient Disposition: Admit
Date of Disposition: 01/24/25
Time of Disposition: 21:36
Admit to: ICU
Presentation/result/management discussed w/ accepting MD/DO: Hospitalist
Condition: Critical
Discharge Problem:
Acidosis, lactic, Sepsis, Rhabdomyolysis
Interventions
Interventions:
*General Assessment Last Done: 01/24/25 20:21
*ED- Fall Risk Assessment Last Done: 01/24/25 20:21
*ED COVID-19 Vaccine History Last Done: 01/24/25 20:21
ED- Neurological Assessment Last Done: 01/24/25 20:23
ED-Psychological Assessment Last Done: 01/24/25 20:23
[2025-01-24] MEDS: THIAMINE INJECTION 200 MG IV (20:33)
[2025-01-24] MEDS: NSS 1000 IV ×2 (20:34→21:56)
[2025-01-24] MEDS: ATIVAN 2 MG IV (20:34)
[2025-01-24] MEDS: ZOFRAN 4 MG IV (20:46)
[2025-01-24 20:47] LABS: Venous Blood Gas B.E. -1.5 mmol/L (-4 to +4); Venous Blood Gas HCO3 21.3 mmol/L (22-27); Venous Blood Gas O2 Sat % 95.5 %; Venous Blood Gas pCO2 30 mmHg (35-48); Venous Blood Gas pH 7.46 (7.32-7.43); Venous Blood Gas pO2 70 mmHg (30-50)
[2025-01-24 20:57] VITALS: BMI 38.2
[2025-01-24] MEDS: FOLVITE 50.2 MG IV (20:59)
[2025-01-24 21:00] VITALS: BP 142/92
[2025-01-24 21:08] LABS: Lactic Acid 11.5 mmol/L (0.7-2.0)
[2025-01-24 21:09] LABS: Alcohol 141 mg/dl; Alkaline Phosphatase 173 U/L (38-126); Blood Urea Nitrogen 14 mg/dl (9-20); Calcium 7.8 mg/dl (8.4-10.2); Carbon Dioxide 18 mmol/L (22-30); Chloride 72 mmol/L (98-107); Creatine Phosphokinase 659 U/L (55-170); Estimated Creatinine Clearance 79 ml/min; Glucose 210 mg/dl (70-99); Magnesium 1.4 mg/dl (1.6-2.3); Potassium 3.8 mmol/L (3.5-5.1); Sodium 118 mmol/L (135-145); Total Bilirubin 1.4 mg/dl (0.2-1.3); Total Protein 5.2 g/dl (6.3-8.2); eGFR > 60.00
[2025-01-24 21:11] LABS: ALT (SGPT) 81 U/L (0-50); AST (SGOT) 105 U/L (17-59)
[2025-01-24] MEDS: ZOSYN 50 IV (21:16)
[2025-01-24] MEDS: VANCOCIN 540 MG IV (21:16)
[2025-01-24 21:38] LABS: Hematocrit 38.3 % (39.0-52.0); Hemoglobin 14.2 g/dL (13.0-18.0); Mean Corp Hgb Conc. 37.1 g/dL (33.0-37.0); Mean Corpuscular Hgb 32.6 pg (27.0-31.0); Mean Corpuscular Volume 87.8 fL (80.0-94.0); Red Blood Cell Count 4.36 10^6/uL (4.70-6.10); Red Cell Dist. Width 13.7 % (11.5-14.5)
[2025-01-24 21:40] LABS: Band Neutrophils 20 % (0-3); Lymphocytes 19 % (20-51); Monocytes 12 % (2-9); Segmented Neutrophils 47 % (42-75)
[2025-01-24 21:41] LABS: Metamyelocytes 2 % (-)
[2025-01-24 21:42] LABS: Normal RBC Morphology Yes; Platelets Checked Yes; Total Cells Counted 100
[2025-01-24 22:00] VITALS: BP 112/86
--- NOTE | 2025-01-24 22:32 | HPS.HSE ---
Family Physician
-
Family Physician: NO INTERVIEW UNKNOWN
Chief Complaint
-
Infected Wounds
History of Present Illness
Patient is a 54 y/o male past medical history of anxiety, depression and alcohol abuse who presents with infected wounds. Patient was found lying on the ground behind a [place] and a bystander called EMS. Patient was found to have visibly infected
wounds and he was brought to the emergency department for evaluation. Patient was noted to be covered in maggots particularly in the lower extremities, buttocks and genital regions. Patient has been homeless for the past 2 weeks after his mom kicked
him out of her house. Patient has been drinking daily with last drink this morning.
Medical History
Past Medical History
Past Medical History: Reports Other
Additional Past Medical History:
Anxiety / Depression
Alcohol Use Disorder
Past Surgical History: Reports Other
Social History
Tobacco: Non-smoker
Alcohol: Daily (3-5 24oz high ABV beers per day)
Drug: None
Living: Homeless
Family History
Family History: Not pertinent
Allergies / Home Medications
Allergies reflects when Allergies were last updated in [employer]
Home Medications with original date entered in [employer]
Allergy/Medication List:
Allergies
Allergy/AdvReac Type Severity Reaction Status Date / Time
No Known Allergies Allergy Verified 12/18/24 19:04
Home Medications
paroxetine HCl 20 mg tablet 20 mg PO DAILY Mental Health/Anxiety 07/06/23
metoprolol tartrate 25 mg tablet 25 mg PO BID #0 tabs 07/12/23
alprazolam 0.5 mg tablet (Xanax) 0.5 mg PO DAILYPRN PRN anxiety 01/24/25
doxepin 75 mg capsule 75 mg PO DAILY 01/24/25
Review of Systems
-
A 12 point ROS was completed and negative except as noted: Yes
Constitutional: Denies Fever
Respiratory: Denies Cough
Cardiac: Denies Chest Pain
Abdomen/GI: Denies Abdominal Pain
Physical Exam
Vital Signs
Vital Signs
Temp Pulse Resp BP Pulse Ox
99.2 F 122 19 142/92 96
01/24/25 21:23 01/24/25 21:15 01/24/25 21:15 01/24/25 21:00 01/24/25 21:15
Physical Exam
General: Well Developed and Well Nourished
HEENT: Anicteric and Moist mucous membranes
Respiratory: Clear and Non Labored Respirations
Cardiac: S1/S2, Regular Rhythm and Tachycardia
GI: Soft and Non Tender
Rectal: Deferred by Provider
Musculoskeletal: No Clubbing and No Cyanosis
Skin: Warm, Dry and Other (Pictures taken by ED provider were reviewed)
Neuro: Awake, Alert, Oriented and Tremors
Laboratory Results
-
01/24/25 20:38
Laboratory Results
Lactic Acid 11.5 mmol/L (0.7-2.0) H* 01/24/25 20:38
Total Bilirubin 1.4 mg/dl (0.2-1.3) H 01/24/25 20:38
AST 105 U/L (17-59) H 01/24/25 20:38
ALT 81 U/L (0-50) H 01/24/25 20:38
Alkaline Phosphatase 173 U/L (38-126) H 01/24/25 20:38
Data Reviewed
-
CT Scan: Report Reviewed by me
Lab Data: Labs Reviewed by me
Impression/Plan
-
Severe Sepsis due to Cellulitis/Soft Tissue Infection secondary to Infected Lower Extremity / Buttock / Perineum Wounds
-Admit to ICU
-Consult Infectious Disease, Surgery and Wound Care
-Await CT scan results
-Await blood cultures
-Trend lactic acid level
-Continue Vancomycin, and Zosyn
-Keep NPO pending CT results
Acute / Severe Hyponatremia, possibly related to beer potomania
-Consult Nephrology
-Await repeat sodium level
-Plan for 3% NaCl if sodium level is trending down
Alcohol Use Disorder
-Patient reports prior episodes of delirium tremens and withdrawal seizure
-Continue phenobarbital
-Continue Ativan prn
-Continue thiamine and folic acid
Hyperglycemia, patient denies prior history of diabetes mellitus
-Check Hgba1c
-Monitor sugars and continue coverage insulin
Elevated LFT, likely related to alcohol
-Continue to trend
DVT proph: SC Heparin
Code Status: Full Code
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
[2025-01-24] MEDS: PHENOBARBITAL 104 MG IV (22:55)
[2025-01-24 23:06] VITALS: BP 135/74
[2025-01-24 23:19] LABS: Urine Albumin 2+ (Neg - Trace); Urine Bilirubin Negative (Negative); Urine Character Clear (Clear); Urine Color Yellow; Urine Glucose Negative (Negative); Urine Ketone 1+ (Negative); Urine Leukocyte 3+ (Negative); Urine Nitrite Negative (Negative); Urine Occult Blood 3+ (Negative); Urine Urobilinogen 1+ (Neg - 1+)
[2025-01-24 23:39] LABS: Urine Bacteria Moderate (Negative); Urine White Cell 16-20 /HPF (0-5)
[2025-01-24 23:40] LABS: Urine Mucus Few
[2025-01-24 23:46] LABS: Lactic Acid 4.5 mmol/L (0.7-2.0)
[2025-01-24 23:48] LABS: Blood Urea Nitrogen 14 mg/dl (9-20); Calcium 6.7 mg/dl (8.4-10.2); Carbon Dioxide 26 mmol/L (22-30); Chloride 83 mmol/L (98-107); Estimated Creatinine Clearance 114 ml/min; Glucose 144 mg/dl (70-99); Potassium 3.4 mmol/L (3.5-5.1); Sodium 119 mmol/L (135-145); eGFR > 60.00
[2025-01-25] VITALS (27 sets, daily range): BP systolic 112–167; BP diastolic 63–102; BMI 38.2; BMI 37.5
[2025-01-25 00:01] LABS: Glucose - Point of Care 150 mg/dl (70-99)
[2025-01-25 00:02] LABS: Osmolality Urine 589 mOsm/kg (300-900)
[2025-01-25 00:04] LABS: Amphetamines Negative (Negative); Barbiturates Negative (Negative)
[2025-01-25 00:06] LABS: Benzodiazepines Positive (Negative); Buprenorphine Negative (Negative); Cocaine Negative (Negative); Marijuana Negative (Negative); Methadone Negative (Negative); Methamphetamines Negative (Negative); Opiates Negative (Negative); Phencyclidine Negative (Negative); Tricyclic Antidepressants Negative (Negative)
[2025-01-25 00:22] LABS: Urine Sodium 15 mmol/L (30-90)
[2025-01-25 00:24] LABS: Fentanyl, Urine Negative (Negative)
[2025-01-25] MEDS: HEPARIN 5000 UNITS SC ×4 (00:37→23:30)
[2025-01-25] MEDS: TYLENOL 650 MG PO ×2 (00:37→11:47)
--- NOTE | 2025-01-25 00:39 | W.PN.SEPSIS ---
Sepsis
Vital Signs
Temp Pulse Resp BP Pulse Ox
101.3 F H 122 19 142/92 96
01/25/25 00:28 01/24/25 21:15 01/24/25 21:15 01/24/25 21:00 01/24/25 21:15
Physical Exam
Physical Exam:
A focused exam was performed after fluid resuscitation.
Capillary Refill
Bilateral Upper Extremity:
Garrick Time: Less than 3 sec
Bilateral Lower Extremity:
Garrick Time: Less than 3 sec
Pulse Evaluation
Bilateral Radial:
Pulse Evaluation: Present
Bilateral Dorsalis Pedis:
Pulse Evaluation: Present
[2025-01-25 01:14] LABS: Lactic Acid 3.2 mmol/L (0.7-2.0)
[2025-01-25] MEDS: SODIUM CHLORIDE 3% 250 IV (01:19)
[2025-01-25] MEDS: KCL 270 MEQ IV (01:25)
[2025-01-25] MEDS: MAGNESIUM SULFATE 50 IV ×2 (01:30→06:31)
[2025-01-25] MEDS: CALCIUM GLUCONATE 130 MG IV (01:34)
[2025-01-25] MEDS: ZOSYN 50 IV ×4 (01:40→21:21)
--- NOTE | 2025-01-25 02:28 | PTCARENOTE ---
Received patient from ED RN to room 3372 awake and alert x3. Flat affect. MAEx4. Sinus tachy on the monitor with HR in the 120s. Temp 101.3. Diminished breath sounds. SpO2 at 96% on room air. Tachypneic. Pt's communicating with staff. Pleasant. +BS.
Urinal to void. The patient's perineum, b/l groin sites, penis, buttocks, and in between toes are with maggots and wounds. Bilateral thighs and legs have open wounds/ dti. Pt cleansed without success of removing all critters. Vaseline applied to all
open sites to contain maggots. adaptic placed on thighs and legs. ABD pads and kerlix applied to thighs. Netting to contain all dressings. Tylenol administered for temp. Potassium chloride 40 meq rider, Calcium gluconate 3 grams, Magnesium sulfate 2
grams riders administered. Urinal is within reach.
[2025-01-25 05:12] LABS: Venous Blood Gas B.E. 5.8 mmol/L (-4 to +4); Venous Blood Gas HCO3 27.8 mmol/L (22-27); Venous Blood Gas pCO2 31 mmHg (35-48); Venous Blood Gas pH 7.56 (7.32-7.43); Venous Blood Gas pO2 166 mmHg (30-50)
[2025-01-25 05:20] LABS: Hematocrit 30.7 % (39.0-52.0); Hemoglobin 11.5 g/dL (13.0-18.0); Mean Corp Hgb Conc. 37.5 g/dL (33.0-37.0); Mean Corpuscular Hgb 32.5 pg (27.0-31.0); Mean Corpuscular Volume 86.7 fL (80.0-94.0); Mean Platelet Volume 9.6 fL (7.4-10.4); Platelet Count 244 10^3/uL (130-400); Red Blood Cell Count 3.54 10^6/uL (4.70-6.10); Red Cell Dist. Width 13.6 % (11.5-14.5); White Blood Cell Count 6.6 10^3/uL (4.8-10.8)
[2025-01-25 05:28] LABS: Lactic Acid 1.9 mmol/L (0.7-2.0); Venous Blood Gas O2 Therapy ROOM AIR
[2025-01-25 05:37] LABS: APTT 32.4 Sec (23.4-35.0); INR 1.27; PT 16.2 Sec (11.4-14.6)
[2025-01-25 05:53] LABS: ALT (SGPT) 63 U/L (0-50); AST (SGOT) 85 U/L (17-59); Albumin 2.4 g/dl (3.5-5.0); Alkaline Phosphatase 168 U/L (38-126); Blood Urea Nitrogen 16 mg/dl (9-20); Calcium 7.7 mg/dl (8.4-10.2); Carbon Dioxide 28 mmol/L (22-30); Chloride 87 mmol/L (98-107); Creatine Phosphokinase 451 U/L (55-170); Estimated Creatinine Clearance 114 ml/min; GGTP 202 U/L (15-73); Glucose 139 mg/dl (70-99); Magnesium 1.6 mg/dl (1.6-2.3); Phosphorus 2.9 mg/dl (2.5-4.5); Potassium 3.6 mmol/L (3.5-5.1); Sodium 123 mmol/L (135-145); Total Bilirubin 1.3 mg/dl (0.2-1.3); Total Protein 4.6 g/dl (6.3-8.2); eGFR > 60.00
[2025-01-25] MEDS: KCL 160 MEQ IV ×2 (06:31→14:16)
--- NOTE | 2025-01-25 07:30 | PHA.VAN.IN ---
Assessment
- Assessment
Renal Function: Unknown baseline
Renal Function may be Overestimated due to: Obesity. BMI = 37.5
Maximum Temperature: 101.3
Minimum Temperature: 99.2
Concomitant Antimicrobials: Piperacillin-tazobactam
AUC Dosing Plan
- Dosing Variables
Dosing Weight (kg): 112.7
Dosing CrCl (ml/min): 114
Vd coefficient (L/kg): 0.7
- Empiric Dosing
Initial / Loading Dose: 2000mg - given 01/25 2116
Maintenance Regimen: 1250mg IV Q8H
Estimated AUC (mcg*h/mL): 515.82
Estimated Peak (mcg*h/mL): 28.96
Estimated Trough (mcg/ml): 15.21
Estimated Half Life (H): 6.99
- Monitoring
No levels ordered at this time: Consider levels after 01/26 2200 dose
Pharmacokinetics Vancomycin I
- -
Patient Age: 54
Patient Sex: Male
Vancomycin Day #: 1
Indication: Skin And Soft Tissue
Requesting Provider: Trung
Height / Weight:
Height 5 ft 8.25 in
Actual Weight 112.7 kg
IBW in k
Adjusted BW in k.5
Pertinent Past Medical History: Alcohol abuse; BMI = 37.5
- Vital Signs / Lab Results
Temp Pulse Resp BP Pulse Ox
101 F H 115 29 114/63 96
01/25/25 03:39 01/25/25 06:30 01/25/25 06:30 01/25/25 06:00 01/25/25 06:30
Lab Results - Hematology
01/24/25 01/25/25
20:38 05:02
WBC 6.0 6.6
Band Neutrophils 20 H
Lab Results - Chemistry
01/24/25 01/24/25 01/25/25
20:38 22:59 05:02
BUN 14 14 16
Creatinine 1.3 0.9 0.9
Estimated Creat Clear 79 114 114
Albumin 3.0 L 2.4 L
01/24/25 01/24/25 01/25/25
20:38 22:59 00:53
Lactic Acid 11.5 H* 4.5 H* 3.2 H
01/25/25 01/25/25 01/25/25
05:01 08:30 12:30
Lactic Acid 1.9 Cancelled Cancelled
Lab Results - Urine
01/24/25
22:59
Urine Nitrite (Reflex) Negative
Leukocyte Esterase Rfl 3+ A
Urine WBC (Reflex) 16-20 A
Ur Squamous Epith Cells 3-5
Urine Bacteria (Reflex) Moderate A
[2025-01-25] MEDS: PHENOBARBITAL 97.5 MG IV (08:01)
[2025-01-25] MEDS: THIAMINE INJECTION 200 MG IV ×2 (08:02→21:21)
[2025-01-25] MEDS: FOLVITE 1 MG PO (08:14)
[2025-01-25 08:29] LABS: Glucose - Point of Care 137 mg/dl (70-99)
--- NOTE | 2025-01-25 08:48 | W.CON.NEPH ---
Consultation
-
Date/Time Consultation Requested: 01/25/25 700 AM
Date/Time Consultation Performed: 01/25/25 848 AM
Requesting Provider: Maliha
Performing Provider: Dr. Garrido
Reason for Consultation: Hyponatremia
Medical History
-
Chief Complaint: Hyponatremia
History of Present Illness:
Patient is a 54 y/o male past medical history of anxiety, depression and alcohol abuse who presents with infected wounds. Patient was found lying on the ground behind a [employer] and a bystander called EMS. Patient was found to have visibly infected
wounds and he was brought to the emergency department for evaluation. Patient was noted to be covered in maggots particularly in the lower extremities, buttocks and genital regions. Patient has been homeless for the past 2 weeks after his mom kicked
him out of her house. On admission his sodium was 118
Past Medical History
Anxiety / Depression
Alcohol Use Disorder
Social History
Tobacco: Non-Smoker
Alcohol: Chronic Alcoholic
Family History
Family History: Not Pertinent
Allergies / Home Medications
Allergy/AdvReac Type Severity Reaction Status Date / Time
No Known Allergies Allergy Verified 12/18/24 19:04
�Medication �Instructions �Recorded �Confirmed �Type
paroxetine HCl 20 mg tablet 20 mg PO DAILY Mental 07/06/23 01/24/25 History
Health/Anxiety
metoprolol tartrate 25 mg tablet 25 mg PO BID #0 tabs 07/12/23 Rx
alprazolam 0.5 mg tablet (Xanax) 0.5 mg PO DAILYPRN PRN anxiety 01/24/25 01/24/25 History
doxepin 75 mg capsule 75 mg PO DAILY 01/24/25 01/24/25 History
Review of Systems
-
All other systems: Negative unless noted
Skin: Other (maggot infested legs and genitals)
Physical Exam
Vital Signs
Vital Signs
Temp Pulse Resp BP Pulse Ox
99.1 F 115 29 114/63 96
01/25/25 07:45 01/25/25 06:30 01/25/25 06:30 01/25/25 06:00 01/25/25 06:30
Lab Results
01/25/25 05:02
01/25/25 05:02
WBC 6.6 10^3/uL (4.8-10.8) 01/25/25 05:02
RBC 3.54 10^6/uL (4.70-6.10) L 01/25/25 05:02
Hgb 11.5 g/dL (13.0-18.0) L 01/25/25 05:02
Hct 30.7 % (39.0-52.0) L 01/25/25 05:02
Plt Count 244 10^3/uL (130-400) 01/25/25 05:02
Sodium 123 mmol/L (135-145) L 01/25/25 05:02
Potassium 3.6 mmol/L (3.5-5.1) 01/25/25 05:02
Chloride 87 mmol/L (98-107) L 01/25/25 05:02
Carbon Dioxide 28 mmol/L (22-30) 01/25/25 05:02
BUN 16 mg/dl (9-20) 01/25/25 05:02
Creatinine 0.9 mg/dL (0.7-1.3) 01/25/25 05:02
eGFR > 60.00 01/25/25 05:02
Glucose 139 mg/dl (70-99) H 01/25/25 05:02
Calcium 7.7 mg/dl (8.4-10.2) L 01/25/25 05:02
Phosphorus 2.9 mg/dl (2.5-4.5) 01/25/25 05:02
Albumin 2.4 g/dl (3.5-5.0) L 01/25/25 05:02
Physical Exam
General: Other (Lethargic, resting comfortably)
Respiratory: Clear
Cardiac: S1/S2
Breast: Deferred by me
Abdomen: Soft, Nontender, Nondistended and Normal Bowel Sounds
Musculoskeletal: Other (Multiple ulcerations and wounds across legs , maggot infestation of lower extremities and genital and perianal region)
Data Reviewed
-
CT Scan: Report Reviewed by me (CAT scan of lower extremity no evidence of lower extremity abscess or soft tissue emphysema mild diffuse cellulitis across left)
Labs: Labs Reviewed by me (CBC BMP urine osmolality)
Old Records: Reviewed
Assessment/Plan
-
Impression:
Hyponatremia
Fever with suspected sepsis in setting of lower extremity wounds
History of alcohol abuse
Alcoholic induced liver disease
Plan:
Hyponatremia
- Serum sodium correcting from 118-123 since last evening following 2 L of normal saline and hypertonic saline infusion which continues at 30 cc/h for total of 250 cc
- Urine sodium of 15 more consistent with volume depletion
- Urine osmolality of 589 more consistent with ADH excess as opposed to beer [place], however patient could also be volume contracted
- Patient should be placed on fluid restriction which will be provided
- Follow-up electrolytes to be obtained and reviewed
- I am hesitant to just get give continued normal saline given his high risk of seizure
- Serum sodium levels will be monitored closely
[2025-01-25 08:59] LABS: Glycohemoglobin (HgbA1c) 5.7 % (4.0-5.6)
[2025-01-25] MEDS: VANCOCIN 275 MG IV ×3 (09:15→23:30)
[2025-01-25] MEDS: NSS 1000 IV (09:15)
--- NOTE | 2025-01-25 09:40 | PTCARENOTE ---
report received, assessments per orders. patient drowsy but awakens easily. oriented X2. see MSAS documentation.monitor sinus tach. diminished breath sounds. abdomen distended, hyperactive bowel sounds. multiple red/open areas. draining serous
fluids. large amount/infestation maggots around penis, scrotum and buttocks. removed and destroyed as many as able, Vaseline applied. safe environment maintained. bed alarm activated
[2025-01-25 11:21] LABS: Glucose - Point of Care 130 mg/dl (70-99)
[2025-01-25] MEDS: ATIVAN 1 MG PO (11:47)
[2025-01-25 11:59] LABS: Carbon Dioxide 28 mmol/L (22-30); Chloride 89 mmol/L (98-107); Potassium 3.4 mmol/L (3.5-5.1); Sodium 125 mmol/L (135-145)
--- NOTE | 2025-01-25 12:25 | CON.ID ---
Consultation
-
Date/Time Consultation Requested: January 24, 2025 [id number]
Date/Time Consultation Performed: January 25, 2025 1230
Requesting Provider: Andria Garvin PA-C
Performing Provider: Dr. Filomena Castillo
Reason for Consultation: Infected wounds
Chief Complaint / Past History
History of Present Illness
History obtained from review of medical records since patient is currently very lethargic and unable to provide a full history. He is a 54-year-old male with alcohol abuse recently evicted from his mother's home and has been homeless for 2 weeks.
He was found unresponsive at the back of [facility] and brought to the hospital January 24. Patient noted to have wounds on his bilateral upper legs to the groin full of maggots. Sodium 118. Lactic acid 11.5. Temperature 101.5. CBC
with 20% bandemia.CT of the abdomen pelvis and extremity did not show Leon's gangrene. He was started on vancomycin and Zosyn.
Past History
Additional Past Medical History:
HTN
Anxiety/Depression
Alcohol abuse
Allergy History:
No Known Allergies Allergy (Verified 12/18/24 19:04)
Medications Reviewed: Yes
Current Antibiotics:
Vancomycin
Zosyn
Social History
Alcohol: Daily (3 to 5 beer (24oz))
Drug: None
Living: Homeless
Family History
Family History: Not Pertinent
Review of Systems
Review of Systems
Unable to obtain due to lethargy.
Vital Signs
Temp Pulse Resp BP Pulse Ox
98.3 F 100 24 137/74 97
01/25/25 11:54 01/25/25 12:00 01/25/25 12:00 01/25/25 10:00 01/25/25 12:00
Selected Entries
01/25/25
00:28 01/25/25
03:39
Temp 101.3 F H 101 F H
Physical Exam
Physical Exam
Constitutional: Acutely Ill
Head: Other (No frontal or max or sinus tenderness)
Eyes: No Conjunctival Hemorrhage and Sclera Anicteric
Cardiovascular: S1/S2 and Other (Tachycardic)
Pulmonary: Clear
Gastrointestinal: Soft, Non Tender, Non Distended and Normal Bowel Sounds
Genito-Urinary: Negative CVA Tenderness
Extremities: Negative Edema
Wound: Other (Multiple skin tears and deeper wounds, some with necrosis, surrounding erythema on some of the wounds. Wounds located mostly thighs to perineum L>R.)
Neurological: Other (Very lethargic); Negative Meningeal Signs
Lab / Diagnostic Study Results
01/25/25 05:02
01/25/25 11:33
Total Counted 100 01/24/25 20:38
Abs Neuts (Manual) 4.0 10^3/uL (1.4-6.5) 01/24/25 20:38
Segmented Neutrophils 47 % (42-75) 01/24/25 20:38
Band Neutrophils 20 % (0-3) H 01/24/25 20:38
Lymphocytes (Manual) 19 % (20-51) L 01/24/25 20:38
PT 16.2 Sec (11.4-14.6) H 01/25/25 05:02
INR 1.27 01/25/25 05:02
Lactic Acid Cancelled 01/25/25 12:30
Ur Squamous Epith Cells 3-5 /LPF (Few) 01/24/25 22:59
Microbiology Results
Micro:
01/24/25 22:59 Urine Culture - Pending
Urine
01/24/25 20:38 Blood Culture - Pending
Blood/Venous
01/24/25 20:44 Blood Culture - Pending
Blood/Venous
01/24/25 CT a/p, BLE CT:
1. VERY SEVERE DIFFUSE HEPATIC STEATOSIS and mild hepatomegaly.
2. Distended gallbladder without evidence for pericholecystic inflammation.
3. Moderate diffuse pancreatic lipomatosis.
4. Mild chronic bilateral renal disease.
5. Moderate pneumomediastinum.
6. No CT evidence for Leon's gangrene in the perineum.
7. No CT evidence for lower extremity abscess or soft tissue emphysema.
8. Mild diffuse cellulitis throughout the left thigh.
Assessment / Plan
# BLE wounds with cellulitis (reportedly wounds infested with maggots)
# Alcohol abuse /withdrawal
# Fever, bandemia
# Severe hyponatremia
-CT no Leon's gangrene
- Follow blood cx's
- Can continue Vanco and Zosyn for now.
-Trend temps/wbc
--- NOTE | 2025-01-25 12:35 | PTCARENOTE ---
Addendum entered by Promise Cleveland RN 01/25/25 13:18:
patient drowsy post ativan. unable to take oral potassium. sporting goods salesperson updated by teena text
Original Note:
patient incontinent of urine and liquid stools. placed rectal trumpet. complete bath and wound care provided. this com writer continues to remove/destroy maggots crawling around penis/scrotum and perianal area. labs sent. updates to consultants. ativan
administered per MSAS. update to patient mother. patient requests his mother be the primary contact
--- NOTE | 2025-01-25 13:43 | CM ---
Addendum entered by Anca Logan 01/25/25 14:32:
Message left for [facility].
Original Note:
marketing sales manager reviewed patient's chart and patient has been living in his car behind [place], patient has no insurance or PCP. Patient has long history or alcohol misuse and has been placed through [facility] at [facility] [place], patient has completed
inpatient and intensive outpatient programs, patient also had a suicide attempt last November and was placed by crisis at [facility], patient was recently at [facility] where patient left [facility]. Patient with extensive wounds and may
now need skilled placement.
Patient is currently on Phenobarbital taper. Patient may benefit from skilled placement if patient is agreeable or medical D&A treatment center such as [place] or [place] with [facility] [place].
Patient's mother is patient's emergency contact, father lives in [place].
PCP: None
Pharmacy: [facility] in [place]
Plan; To follow with progress and assist with discharge planning.
--- NOTE | 2025-01-25 14:52 | W.PN.HOSP.TC ---
Today's Communication/Plan
-
He is unhoused and will require additional social work/care management support
Assessment / Plan
Assessment / Plan
NAD
Scleral Anicteric
MMM
No JVD
CTABL
RRR, S1/S2
Soft, NT, ND, BS+
Warm, Dry
Bilateral lower extremity erythematous with noticeable excoriations
Regional Operations Manager bedside nurse groin assessed appears moist however was just cleaned and Vaseline applied
AAOx3
Calm
Severe sepsis due to cellulitis/soft tissue infection secondary to infected lower extremity buttocks perineum wound
Consult infectious disease
Await blood cultures
Continue vancomycin Zosyn
Keep n.p.o.
CT without evidence of Leon's
Acute/severe hyponatremia likely secondary to beer Potonemia
Fluid restrict per nephrology
Repeat BMP
Nephrology has not him provide any additional saline as this could cause seizure
Alcohol use disorder
Continue phenobarbital abscess Ativan thiamine folate
Hyperglycemic
Accu-Chek sliding scale check A1c carb controlled diet when able to eat
Elevated LFTs likely related to alcohol and in the setting of hepatic steatosis
Continue to trend avoid hepatotoxins
Anticipated Discharge: > 48 hours
Subjective/Interval History
-
Date of Service: January 25, 2025
Seen and examined. No new complaints. No acute overnight events.
Has a hiccups, tachycardic feels anxious at times however no tremors
Objective Data
-
Labs:
Laboratory Results
01/25/25 01/25/25 01/25/25
05:02 11:33 18:00
WBC 6.6
Hgb 11.5 L
Hct 30.7 L
Plt Count 244
PT 16.2 H
INR 1.27
APTT 32.4
Sodium 123 L 125 L Pending
Potassium 3.6 3.4 L Pending
Chloride 87 L 89 L Pending
Carbon Dioxide 28 28 Pending
BUN 16
Creatinine 0.9
Glucose 139 H
Calcium 7.7 L
Total Bilirubin 1.3
AST 85 H
ALT 63 H
Alkaline Phosphatase 168 H
Vital Signs:
Vital Signs
Temp Pulse Resp BP Pulse Ox
98.3 F 101 28 135/87 97
01/25/25 11:54 01/25/25 12:30 01/25/25 12:30 01/25/25 12:09 01/25/25 12:30
I&O
01/24/25 01/25/25 01/26/25
06:59 06:59 06:59
Intake Total 650.0 / 680.0 810 / 810
Output Total 300 / 300
Balance 650.0 / 680.0 510 / 510
--- NOTE | 2025-01-25 14:58 | CON.GS ---
Consultation
-
Date/Time Consultation Performed: 01/25/2025 2:48 PM
Reason for Consultation: Wounds
Medical History
-
Chief Complaint: Wound care evaluation
History of Present Illness:
Patient is a 54-year-old male who was [facility] and brought in by EMS. He has apparently been homeless recently and has a medical history of anxiety, depression, alcohol abuse. Lower extremity/groin wounds and maggots were discovered
on examination prompting surgical consultation.
At current evaluation patient is somnolent but responsive. He essentially does not provide history.
Past Medical History
Past Medical History: Other (Anxiety, depression, alcohol abuse)
Social History
Alcohol: Chronic Alcoholic
Family History
Family History: Unable to Obtain
Allergies / Home Medications
Allergy/AdvReac Type Severity Reaction Status Date / Time
No Known Allergies Allergy Verified 12/18/24 19:04
�Medication �Instructions �Recorded �Confirmed �Type
paroxetine HCl 20 mg tablet 20 mg PO DAILY Mental 07/06/23 01/24/25 History
Health/Anxiety
metoprolol tartrate 25 mg tablet 25 mg PO BID #0 tabs 07/12/23 Rx
alprazolam 0.5 mg tablet (Xanax) 0.5 mg PO DAILYPRN PRN anxiety 01/24/25 01/24/25 History
doxepin 75 mg capsule 75 mg PO DAILY 01/24/25 01/24/25 History
Review of Systems
-
Unable to obtain full review of systems at this time due to: Acuity
History Source: Patient
A 10 point review of systems was completed, and was negative except as per HPI.
Physical Exam
Vital Signs
Temp Pulse Resp BP Pulse Ox
98.3 F 101 28 135/87 97
01/25/25 11:54 01/25/25 12:30 01/25/25 12:30 01/25/25 12:09 01/25/25 12:30
01/24/25 01/25/25 01/26/25
06:59 06:59 06:59
Actual Weight 112.7 kg
Body Mass Index (BMI) 37.5
Lab Results
01/25/25 05:02
WBC 6.6 10^3/uL (4.8-10.8) 01/25/25 05:02
Hgb 11.5 g/dL (13.0-18.0) L 01/25/25 05:02
Hct 30.7 % (39.0-52.0) L 01/25/25 05:02
Plt Count 244 10^3/uL (130-400) 01/25/25 05:02
Physical Exam
General: Other (Lying in bed in ICU. Somnolent but responsive. Does not provide accurate history. Denies pain.)
HEENT: Normocephalic, Anicteric and Moist Mucous Membranes
Respiratory: Non Labored Respirations
Cardiac: Regular Rhythm
Skin: Other (Erythematous skin throughout the thigh regions bilaterally. Superficial maggots identified but no large wounds in the groin perineum, buttock or inguinal regions. Right anterior lateral thigh with superficial skin necrosis.)
Data Reviewed
-
CT Scan: Image Personally Visualized and interpreted and Report Reviewed by me
Assessment / Plan
-
Assessment: 54-year-old male admitted with change in mental status, found down, hyponatremia, alcohol use disorder, hyperglycemia, alcohol toxicity and cellulitis/soft tissue superficial wounds.
CT imaging reviewed. No radiographic findings suggestive of deeper soft tissue infection.
On thorough physical examination there are a few residual maggots but generally the skin is fairly clean and erythematous but not deep or necrotizing wounds.
There is superficial dermal necrosis/dry eschar along the right lateral hip region but again without any signs of secondary infection.
Plan: There is no role for operative/surgical debridement nor drainage procedures
Local wound care alone should suffice
Nursing has provided excellent care for cleaning up areas of maggot infestation which are almost essentially resolved at this point
Signing off. Call if can be of further assistance with care.
--- NOTE | 2025-01-25 15:00 | CON.INTV ---
Addendum entered and electronically signed by Kathy Bonner MD 01/26/25 06:53:
-Patient transferring out of ICU
-Skein Yarn Dyer service will sign off, please call as needed.
Original Note:
Consultation
Consultation Request
Date/Time Consultation Requested: 01/24/2025
Date/Time Consultation Performed: 01/25/2025
Requesting Provider: Andria Nino
Performing Provider: Kathy Bonner
Reason for Consultation: Hyponatremia, alcohol withdrawl
Medical History
-
Chief Complaint: Infected wounds
History of Present Illness:
Patient is a very pleasant 54-year-old gentleman with history of alcohol use disorder presented to the emergency room with multiple infected needs. Patient was reportedly found lying down on the ground behind a store and a bystander subsequently
called EMS. Patient was noted to be covered in maggots in the lower extremities buttocks and genital regions. Reportedly patient has been homeless for more than 10 days. Noted reported history of heavy alcohol use last drink on the day of
admission. Workup in the emergency room showed severe hyponatremia, hyperglycemia, abnormal LFTs as well as sepsis due to cellulitis/soft tissue infection in the perineal region. Patient was subsequently admitted to the ICU. Skein Yarn Dyer consult
was requested for further input.
Past Medical History: Reports Other
Additional Past Medical History:
Anxiety / Depression
Alcohol Use Disorder
Past Surgical History: Reports Other
Social History
Tobacco: Non-smoker
Alcohol: Daily (3-5 24oz high ABV beers per day)
Drug: None
Living: Homeless
Family History
Family History: Not pertinent
Allergies / Home Medications
Allergies / Home Medications
Allergies
Allergy/AdvReac Type Severity Reaction Status Date / Time
No Known Allergies Allergy Verified 12/18/24 19:04
Home Medications
�Medication �Instructions �Recorded �Confirmed �Last Taken �Type
paroxetine HCl 20 mg tablet 20 mg PO DAILY Mental 07/06/23 01/24/25 Unknown History
Health/Anxiety
metoprolol tartrate 25 mg tablet 25 mg PO BID #0 tabs 07/12/23 Unknown Rx
alprazolam 0.5 mg tablet (Xanax) 0.5 mg PO DAILYPRN PRN anxiety 01/24/25 01/24/25 Unknown History
doxepin 75 mg capsule 75 mg PO DAILY 01/24/25 01/24/25 Unknown History
Review of Systems
-
Hematologic/Lymphatic: Other (All 14 systems reviewed and negative except as stated above in the history of present illness.)
Vitals / Labs / Diagnostic Testing
Vital Signs
Temp Pulse Resp BP Pulse Ox
98.3 F 101 28 135/87 97
01/25/25 11:54 01/25/25 12:30 01/25/25 12:30 01/25/25 12:09 01/25/25 12:30
Lab Data
01/25/25 05:02
Laboratory Results
01/25/25
05:02
PT 16.2 H
INR 1.27
APTT 32.4
Diagnostic Testing:
Physical Exam
-
HEENT: Normocephalic
Cardiovascular: S1/S2
Respiratory: Clear and Non-Labored Respirations
GI: Soft and Non Distended
Neurology: Awake and Alert
Skin: Warm and Other (Extensive cellulitis and maggot infestation in the perineum noted.)
General: Comfortable
Assessment
-
#1. Bilateral, lower extremity wounds with cellulitis, maggot infestation, sepsis with lactic acidosis
- CT imaging not suggestive of Leon's gangrene
- Currently on IV vancomycin and Zosyn. Check MRSA screen
- Infectious disease service on case. Follow-up on blood cultures.
- Patient hemodynamically stable. Not requiring any pressor support. Currently patient is afebrile, normal WBC count. Blood gas was 7.46 yesterday, 7.56 pH today.
- Lactate was 11.5 on admission, significantly improved, down to 1.9 with fluid resuscitation and antibiotics\\
- Patient is not requiring any pressor support, saturating well on room air. Can be transferred out of ICU to intermediate medical unit
#2. Hyponatremia. With low chloride as well as low urine sodium, presentation more consistent with hypovolemia rather than beer potomania.
-Patient responded well to normal saline boluses as well as received 3% NS
-Hold paroxetine. Urine studies however are not consistent with SIADH.
-Saline lock. Follow-up electrolytes at 6 PM tonight.
#3. Pneumomediastinum. CT abdomen pelvis included only lower half of lungs no obvious pneumothorax noted. On review of CT, no evidence for fluid collection in the posterior mediastinum around the esophagus or evidence for abnormal esophageal wall
thickening to suggest esophageal perforation. No pericardial pleural effusion noted on either. Minimal subpleural segmental atelectasis and scarring in the posterior basal segment of the right lower lobe.
- ?Etiology. No reported history of asthma or bronchospasm. Could be related to vomiting, retching or forceful coughing
- Patient is asymptomatic currently. Saturating well on room air. Respiratory exam is benign. Will proceed with a chest x-ray to rule out any apical pneumothorax.
#4. Alcohol use disorder. Patient currently appears calm without signs of alcohol withdrawal. He has severe hepatic steatosis noted on imaging. History of alcoholism, certainly at risk of withdrawal considering his prior history of alcohol
withdrawal related seizures.
- Continue continue phenobarbital taper, p.o.
- Avoid concomitant Ativan as the combination increases risk of respiratory depression
- Continue to monitor closely in IMU
- Follow-up follow-up elevated liver function tests
Critical Care time 68 mins -- The patient is admitted for acute critical illness for the treatment of vital organ failure and/or prevention of further life-threatening conditions. Total care includes time spent in review of history, physical exam,
medications, hemodynamic/ventilator parameters, laboratory data, imaging and discussion with house staff, pharmacy, respiratory therapy, junior programmer analyst, and nursing.
Data:
CT Abd/pel/extremities: 1. VERY SEVERE DIFFUSE HEPATIC STEATOSIS and mild hepatomegaly.
2. Distended gallbladder without evidence for pericholecystic inflammation.
3. Moderate diffuse pancreatic lipomatosis.
4. Mild chronic bilateral renal disease.
5. Moderate pneumomediastinum.
6. No CT evidence for Leon's gangrene in the perineum.
7. No CT evidence for lower extremity abscess or soft tissue emphysema.
8. Mild diffuse cellulitis throughout the left thigh.
[2025-01-25] MEDS: PHENOBARBITAL IV (15:28)
[2025-01-25 17:42] LABS: Glucose - Point of Care 105 mg/dl (70-99)
--- NOTE | 2025-01-25 17:43 | PTCARENOTE ---
Addendum entered by Promise Cleveland RN 01/25/25 18:58:
tufter updated with lyte results by tiger text, message read. orders pending. report to oncoming RN
Original Note:
patient reassessed, sleeping unless disturbed. msas per work list. wound care provided multiple times throughout the shift due to drainage. areas cleansed with soap and water. adaptic, alginate and abd's,Covidien pads applied to all areas and
secured with Spandage. xeroform gauze wrapped around penis and scrotum. rectal trumpet draining moderate amount loose dark brown stool. see bladder scan documentation. @1730 with wound care, only a few maggots were visualized and destroyed. much
improved since beginning of shift
[2025-01-25 18:34] LABS: Carbon Dioxide 29 mmol/L (22-30); Chloride 92 mmol/L (98-107); Potassium 3.2 mmol/L (3.5-5.1); Sodium 127 mmol/L (135-145)
--- NOTE | 2025-01-25 20:42 | PTCARENOTE ---
Assumed care of pt approx 1900.
RA maintaining own airway at this time. 97% sp02.
MSAS remains low at 2.
answering questions and can express all needs at this time.
[2025-01-26] VITALS (17 sets, daily range): BP systolic 110–166; BP diastolic 67–106; BMI 37.7
[2025-01-26 00:02] LABS: Blood Urea Nitrogen 17 mg/dl (9-20); Calcium 7.5 mg/dl (8.4-10.2); Carbon Dioxide 29 mmol/L (22-30); Chloride 93 mmol/L (98-107); Estimated Creatinine Clearance > 125 ml/min; Glucose 95 mg/dl (70-99); Sodium 128 mmol/L (135-145); eGFR > 60.00
[2025-01-26] MEDS: ZOSYN 50 IV ×4 (01:21→21:18)
[2025-01-26 03:37] LABS: Hemoglobin 10.5 g/dL (13.0-18.0); Mean Corp Hgb Conc. 36.2 g/dL (33.0-37.0); Mean Corpuscular Hgb 32.6 pg (27.0-31.0); Mean Corpuscular Volume 90.1 fL (80.0-94.0); Mean Platelet Volume 9.8 fL (7.4-10.4); Platelet Count 231 10^3/uL (130-400); Red Blood Cell Count 3.22 10^6/uL (4.70-6.10); Red Cell Dist. Width 13.8 % (11.5-14.5); White Blood Cell Count 4.8 10^3/uL (4.8-10.8)
[2025-01-26 03:46] LABS: ALT (SGPT) 66 U/L (0-50); AST (SGOT) 131 U/L (17-59); Albumin 2.2 g/dl (3.5-5.0); Alkaline Phosphatase 272 U/L (38-126); Blood Urea Nitrogen 16 mg/dl (9-20); Calcium 7.4 mg/dl (8.4-10.2); Carbon Dioxide 29 mmol/L (22-30); Chloride 93 mmol/L (98-107); Creatine Phosphokinase 166 U/L (55-170); Direct Bilirubin 0.4 mg/dl (0.0-0.4); Estimated Creatinine Clearance > 125 ml/min; Glucose 90 mg/dl (70-99); Magnesium 1.9 mg/dl (1.6-2.3); Phosphorus 2.9 mg/dl (2.5-4.5); Potassium 3.1 mmol/L (3.5-5.1); Sodium 130 mmol/L (135-145); Total Protein 4.4 g/dl (6.3-8.2); eGFR > 60.00
--- NOTE | 2025-01-26 05:23 | PTCARENOTE ---
Wound dressings completed, no evidence of Myiasis topically seen w. take down of existing dressings. Xeroform, petroleum gauze applied to wound sites.
[2025-01-26 07:12] LABS: % Basophils 0.4 % (0-2); % Immature Granulocytes 0.6 % (0-0.5); % Lymphocytes 14.5 % (20.5-51.1); % Monocytes 12.7 % (1.7-9.3); % Neutrophils 71.8 % (42.2-75.2); Absolute Lymphocytes 0.7 10^3/uL (1.2-3.4); Absolute Monocytes 0.6 10^3/uL (0.1-0.6); Absolute Neutrophils 3.5 10^3/uL (1.4-6.5); Nucleated Red Blood Cells % 0.4 % (-)
[2025-01-26] MEDS: FOLVITE 1 MG PO (07:41)
[2025-01-26] MEDS: THIAMINE INJECTION 200 MG IV ×2 (07:42→21:17)
[2025-01-26] MEDS: HEPARIN 5000 UNITS SC ×3 (07:42→23:13)
--- NOTE | 2025-01-26 07:53 | W.PN.NEPH.PH ---
Addendum entered and electronically signed by Khris Garrido DO 01/26/25 07:59:
no more IVFS as diet advances
K repleted
sign off
Original Note:
Today's Communication / Plan
-
maintain low dose NSS
replete K
we will sign off
Assessment/Plan
-
Impression:
Hyponatremia
Fever with suspected sepsis in setting of lower extremity wounds
History of alcohol abuse
Alcoholic induced liver disease
Plan:
Hyponatremia
- Serum sodium correcting from 118-130 over past 36hr
-maintain low dose NSS
-replete K
- Urine sodium of 15 more consistent with volume depletion
- Urine osmolality of 589 more consistent with ADH excess as opposed to beer P[place] camron, however patient could also be volume contracted
-we will sign off
-
-
Date of Service: January 26, 2025
CC / HPI / ROS
-
Chief Complaint:
Hyponatremia
History of Present Illness:
Serum sodium correcting to 130
Potassium 3.2
Hemodynamically stable
Review of Systems:
Nonoliguric
Low-grade fevers yesterday
Labs
-
Labs:
WBC 4.8 10^3/uL (4.8-10.8) 01/26/25 03:05
RBC 3.22 10^6/uL (4.70-6.10) L 01/26/25 03:05
Hgb 10.5 g/dL (13.0-18.0) L 01/26/25 03:05
Hct 29.0 % (39.0-52.0) L 01/26/25 03:05
Plt Count 231 10^3/uL (130-400) 01/26/25 03:05
Sodium 130 mmol/L (135-145) L 01/26/25 03:05
Potassium 3.1 mmol/L (3.5-5.1) L 01/26/25 03:05
Chloride 93 mmol/L (98-107) L 01/26/25 03:05
Carbon Dioxide 29 mmol/L (22-30) 01/26/25 03:05
BUN 16 mg/dl (9-20) 01/26/25 03:05
Creatinine 0.7 mg/dL (0.7-1.3) 01/26/25 03:05
eGFR > 60.00 01/26/25 03:05
Glucose 90 mg/dl (70-99) 01/26/25 03:05
Calcium 7.4 mg/dl (8.4-10.2) L 01/26/25 03:05
Phosphorus 2.9 mg/dl (2.5-4.5) 01/26/25 03:05
Albumin 2.2 g/dl (3.5-5.0) L 01/26/25 03:05
Physical Exam
-
Vital Signs:
Vital Signs
Temp Pulse Resp BP Pulse Ox
99 F 92 21 124/82 97
01/26/25 07:37 01/26/25 06:00 01/26/25 06:00 01/26/25 06:00 01/26/25 06:00
Cardiovascular:: Regular rate and rhythm
Respiratory:: Bilateral: CTA
Lung Excursion:: Normal
Abdomen:: Nontender and Soft
Extremity Edema:: None: Bilateral:
Choudhary Catheter: No
[2025-01-26] MEDS: VANCOCIN 275 MG IV ×3 (08:23→23:14)
[2025-01-26] MEDS: KLOR-CON 40 MEQ PO (08:23)
[2025-01-26] MEDS: LUMINAL 64.8 MG PO ×3 (08:23→21:18)
--- NOTE | 2025-01-26 08:35 | PTCARENOTE ---
Addendum entered by Promise Cleveland RN 01/26/25 09:24:
patient more comfortable. pain lessening. he refuses pain medication at this time. 1 maggot found on penis during wound care this am. stool specimen sent.
Original Note:
report received. assessments per work list. patient mildy anxious, see msas. requesting dose of 'ativan'. phenobarb administered per orders. complete wound care provided. multiple areas draining yellow drainage. rectal trumpet in place, large amount
dark brown liquid stool. patient c/o severe abdominal pain. Dr osullivan updated with above and + blood culture. hospitalist informed of severe abdominal pain by tiger text. orders pending
--- NOTE | 2025-01-26 08:46 | PHA.VAN.FU ---
Vancomycin Assessment / Plan
- Assessment
Renal Function: SCR Decreasing
WBC's are: Trending Down
In the past 24 hrs, patient has been: Afebrile
Concomitant Antimicrobials: Piperacillin-tazobactam
- Dosing Plan
Continue: Vanc 1250mg IV Q8H
- Monitoring Plan
Peak Level: 01/27 at 0100
Trough Level: 01/27 at 0530
- Follow Up
Pharmacy will continue to follow.
Vancomycin Follow UP
- -
Patient Age: 54
Patient Sex: Male
Vancomycin Day #: 2
Indication: Skin And Soft Tissue
Requesting Provider: Trung
Height / Weight:
Height 5 ft 8.25 in
Actual Weight 113.1 kg
IBW in k
Adjusted BW in k.5
Pertinent Past Medical History: Alcohol abuse; BMI = 37.5
- Vital Signs / Lab Results
Temp Pulse Resp BP Pulse Ox
99 F 92 21 124/82 97
01/26/25 07:37 01/26/25 06:00 01/26/25 06:00 01/26/25 06:00 01/26/25 06:00
Lab Results - Hematology
01/24/25 01/25/25 01/26/25
20:38 05:02 03:05
WBC 6.0 6.6 4.8
Band Neutrophils 20 H
Lab Results - Chemistry
01/24/25 01/24/25 01/25/25
20:38 22:59 05:02
BUN 14 14 16
Creatinine 1.3 0.9 0.9
Estimated Creat Clear 79 114 114
Albumin 3.0 L 2.4 L
01/25/25 01/26/25
23:26 03:05
BUN 17 16
Creatinine 0.7 0.7
Estimated Creat Clear > 125 > 125
Albumin 2.2 L
01/24/25 01/24/25 01/25/25
20:38 22:59 00:53
Lactic Acid 11.5 H* 4.5 H* 3.2 H
01/25/25 01/25/25 01/25/25
05:01 08:30 12:30
Lactic Acid 1.9 Cancelled Cancelled
Microbiology Results
01/24/25 20:38 Blood Culture - Preliminary
Blood/Venous Positive culture in progress
Gram Stain - Preliminary
01/24/25 20:44 Blood Culture - Preliminary
Blood/Venous No Growth in 24 hours- Final report to follow
--- NOTE | 2025-01-26 09:08 | W.PN.ID1 ---
Date of Service
Date of Service: January 26, 2025
Today's Communication
Continue abx's.
Check stool cx, C. diff.
Assessment / Plan
# BLE wounds with cellulitis (wounds infested with maggots on admission)
# GNR bacteremia, most-likely from wounds
# Diarrhea
# Fever/bandemia resolving
# Severe hyponatremia, resolving
# Alcohol abuse
# Homeless
-CT no Elon's gangrene
- Repeat blood cx's in am
- Can continue Vanco and Zosyn for now.
- Continue wound care
- Check stool for C. diff, norovirus, culture.
Chief Complaint
-: Cellulitis
Subjective / Review of Systems
Patient more alert today. Per nurse positive diarrhea overnight.
Per nurse, wounds look better today. There was 1 maggot found.
Patient complains of abdominal discomfort.
Vital Signs / Physical Exam
Vital Signs
Vital Signs
Temp Pulse Resp BP Pulse Ox
99 F 92 21 124/82 97
01/26/25 07:37 01/26/25 06:00 01/26/25 06:00 01/26/25 06:00 01/26/25 06:00
Physical Exam
Constitutional: No Acute Distress and Non-toxic
Eyes: No Conjunctival Hemorrhage and Sclera Anicteric
Cardiovascular: Regular Rate and S1/S2
Pulmonary: Clear
Gastrointestinal: Soft, Non Tender, Non Distended, Normal Bowel Sounds and Other (FMS: liquid brown stool)
Genito-Urinary: Negative CVA Tenderness
Extremities: Negative Edema
Neurological: AO x 3
Objective Data
Lab Data
Lab Results
01/26/25 03:05
01/26/25 03:05
PT 16.2 Sec (11.4-14.6) H 01/25/25 05:02
INR 1.27 01/25/25 05:02
APTT 32.4 Sec (23.4-35.0) 01/25/25 05:02
Estimated Creat Clear > 125 ml/min 01/26/25 03:05
Lactic Acid Cancelled 01/25/25 12:30
Total Bilirubin 1.0 mg/dl (0.2-1.3) 01/26/25 03:05
GGT 202 U/L (15-73) H 01/25/25 05:02
AST 131 U/L (17-59) H 01/26/25 03:05
ALT 66 U/L (0-50) H 01/26/25 03:05
Alkaline Phosphatase 272 U/L (38-126) H 01/26/25 03:05
Most recent labs reviewed.
Micro Results:
01/26/25 08:47 Salmonella/Shigella Culture - Pending
Feces/Stool Campylobacter Culture - Pending
Shiga Toxin Test - Pending
01/26/25 08:47 C. difficile GDH Antigen & Toxins - Pending
Feces/Stool - Pending
01/24/25 20:38 Blood Culture - Preliminary
Blood/Venous Positive culture in progress
Gram Stain - Preliminary
01/24/25 20:44 Blood Culture - Preliminary
Blood/Venous No Growth in 24 hours- Final report to follow
01/25/25 15:21 MRSA Screen - Pending
Nose
01/24/25 22:59 Urine Culture - Pending
Urine
01/24/25 CT a/p, BLE CT:
1. VERY SEVERE DIFFUSE HEPATIC STEATOSIS and mild hepatomegaly.
2. Distended gallbladder without evidence for pericholecystic inflammation.
3. Moderate diffuse pancreatic lipomatosis.
4. Mild chronic bilateral renal disease.
5. Moderate pneumomediastinum.
6. No CT evidence for Leon's gangrene in the perineum.
7. No CT evidence for lower extremity abscess or soft tissue emphysema.
8. Mild diffuse cellulitis throughout the left thigh.
Care Review
Plan reviewed with: Nurse
[2025-01-26] MEDS: TYLENOL 650 MG PO (10:18)
--- NOTE | 2025-01-26 10:21 | PTCARENOTE ---
Addendum entered by Promise Cleveland RN 01/26/25 10:27:
shallow respirations due to abdominal discomfort. lungs diminished. pulse oximeter 88. placed on 2 liters
Original Note:
patient continues to have abdominal pian. awaiting orders. agreeable to taking tylenol. incontinent large amount tea colored urine, requiring all dressings to be changed again.
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
--- NOTE | 2025-01-26 11:36 | W.PN.HOSP.TC ---
Today's Communication/Plan
-
Assessment / Plan
Assessment / Plan
NAD
Scleral Anicteric
MMM
No JVD
CTABL
RRR, S1/S2
Soft, NT, ND, BS+
Warm, Dry
Bilateral lower extremity erythematous with noticeable excoriations
Manager Risk bedside nurse groin assessed appears moist however was just cleaned and Vaseline applied
AAOx3
Calm
Severe sepsis due to cellulitis/soft tissue infection secondary to infected lower extremity buttocks perineum wound
Infectious disease following
Await blood cultures, with prelim showing GNR in 1/4 bottles.
Continue vancomycin Zosyn
CT without evidence of Leon's
Acute/severe hyponatremia likely secondary to beer Potonemia
Fluid restrict per nephrology
Repeat BMP
Nephrology has not him provide any additional saline as this could cause seizure
HypoK
Replete
Alcohol use disorder
Continue phenobarbital abscess Ativan thiamine folate
Hyperglycemic
Accu-Chek sliding scale check A1c carb controlled diet when able to eat
Elevated LFTs likely related to alcohol and in the setting of hepatic steatosis
Continue to trend avoid hepatotoxins
Abdominal pain worse in the RUQ
Likley related to hepatatic steatosis and alcohol liver disease along with gastritis/alcohol gastritis
Start diet
PPI ppx
Place man due to excoriated perineum in the setting of wounds and maggots (which has been since eradicated)
Anticipated Discharge: > 48 hours
Subjective/Interval History
-
Date of Service: January 26, 2025
seen and examined
no new complaints
no acute ovenright events
Objective Data
-
Labs:
Laboratory Results
01/25/25 01/26/25
23:26 03:05
WBC 4.8
Hgb 10.5 L
Hct 29.0 L
Plt Count 231
Sodium 128 L 130 L
Potassium 3.0 L 3.1 L
Chloride 93 L 93 L
Carbon Dioxide 29 29
BUN 17 16
Creatinine 0.7 0.7
Glucose 95 90
Calcium 7.5 L 7.4 L
Total Bilirubin 1.0
AST 131 H
ALT 66 H
Alkaline Phosphatase 272 H
Vital Signs:
Vital Signs
Temp Pulse Resp BP Pulse Ox
99 F 107 28 136/77 95
01/26/25 07:37 01/26/25 09:00 01/26/25 09:00 01/26/25 09:00 01/26/25 09:35
I&O
01/25/25 01/26/25 01/27/25
06:59 06:59 06:59
Intake Total 650.0 / 680.0 1924 290 / 290
Output Total 600 / 600 500 / 500
Balance 650.0 / 680.0 1325 / 1325 -210 / -210
[2025-01-26 11:49] LABS: Glucose - Point of Care 111 mg/dl (70-99)
[2025-01-26] MEDS: NOVOLOG FLEXPEN-LOW RESISTANCE SC (11:52)
[2025-01-26] MEDS: ELIMITE/ACTICIN/PERMETHRIN 5% 1 APPLIC TOPICAL (11:54)
[2025-01-26] MEDS: PROTONIX 40 MG PO (11:54)
[2025-01-26] MEDS: ZOFRAN 4 MG IV (12:09)
--- NOTE | 2025-01-26 12:12 | PTCARENOTE ---
patient repeatidly incontinent of urine, requiring frequent dressing changes and wounds become soiled with urine. unable to place external device due to wounds. patient assessments and changes reviewed with hospitalist. no maggots observed since
initial assessment. man placed per order without difficulty. patient c/o nausea. medicated with zofran per prn order. head to toe permethrin cream applied except to open skin/wounds.
[2025-01-26] MEDS: ATIVAN 1 MG PO (12:33)
[2025-01-26 17:31] LABS: Glucose - Point of Care 152 mg/dl (70-99)
[2025-01-26] MEDS: NOVOLOG FLEXPEN-LOW RESISTANCE 1 UNITS SC (17:47)
--- NOTE | 2025-01-26 19:22 | PTCARENOTE ---
Assumed care of pt. approx. 1900.
Tachycardic, Normotensive, Normothermic.
Anicteric sclera, alert oriented can express own needs. MSAS increasing, see flow sheets, Pheno protocol.
Wound care reviewed and completed wJose Saleem. No further evidence of topical myiasis. Wounds now draining. Choudhary placed to prevent further skin breakdown.
--- NOTE | 2025-01-26 21:08 | PTCARENOTE ---
Pharmacy contacted for retime of Vanco peak lab. instructions to
Give vanc dose at 2300, draw peak 2am. Trough lab time does not need to be adjusted per pharmacy.
[2025-01-27] VITALS (10 sets, daily range): BP systolic 97–125; BP diastolic 63–84; BMI 38.2
[2025-01-27] MEDS: ZOSYN 50 IV ×4 (01:56→19:53)
[2025-01-27 02:36] LABS: Blood Urea Nitrogen 17 mg/dl (9-20); Carbon Dioxide 26 mmol/L (22-30); Chloride 95 mmol/L (98-107); Estimated Creatinine Clearance 114 ml/min; Glucose 137 mg/dl (70-99); Potassium 3.7 mmol/L (3.5-5.1); Sodium 129 mmol/L (135-145); eGFR > 60.00
--- NOTE | 2025-01-27 06:00 | PTCARENOTE ---
Pt. transferred to IMU.
[2025-01-27 06:25] LABS: Vancomycin Trough 16.4 ug/ml (5-20)
[2025-01-27] MEDS: NOVOLOG FLEXPEN-LOW RESISTANCE SC ×3 (07:58→17:55)
[2025-01-27 08:00] LABS: Glucose - Point of Care 106 mg/dl (70-99)
--- NOTE | 2025-01-27 08:00 | PTCARENOTE ---
Received patient from factory assembler. patient is awake, alert, oriented to place and time. has an odd affect and disposition but is appropriate. Patient is on room air, saturating 96%. He is sinus tach/sinus rhythm on the monitor. He is grossly
incontinent of bowel and bladder. patient has indwelling urinary catheter and rectal trumpet. Patient has liquid, mucoid stool Patient has multiple wounds throughout, awaiting input from WOC. Will review orders, call villalobos within reach.
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
[2025-01-27] MEDS: PROTONIX 40 MG PO (08:17)
[2025-01-27] MEDS: LUMINAL 64.8 MG PO ×3 (08:17→22:36)
[2025-01-27] MEDS: THIAMINE INJECTION 200 MG IV ×2 (08:17→19:53)
[2025-01-27] MEDS: VANCOCIN 275 MG IV (08:17)
[2025-01-27] MEDS: HEPARIN 5000 UNITS SC ×3 (08:17→22:37)
[2025-01-27] MEDS: FOLVITE 1 MG PO (08:17)
--- NOTE | 2025-01-27 08:51 | PHA.VAN.FU ---
Vancomycin Assessment / Plan
- Assessment
Renal Function: Stable
WBC's are: WNL
In the past 24 hrs, patient has been: Febrile (100.5 07:31 01/27/25)
Concomitant Antimicrobials: pip/tazo
- Assessment - Therapeutic Drug Monitoring
Extrapolated Cmax (mcg/mL): 27.2
Peak level was drawn: Appropriately
Extrapolated Cmin (mcg/mL): 14
Trough Drawn: Appropriately
Levels were drawn: At steady state
Calculated AUC (mcg*h/mL): 480
Calculated ke: 0.1029
Calculated half life (H): 6.7
Calculated Vd (L): 75.77
Calculated Vanc CL (ml/min): 129.96
- Dosing Plan
Continue: [id number] mg q8h
- Monitoring Plan
Level(s) appropriate: Recheck trough at minimum of weekly intervals, Repeat sooner for changes in renal function or clinical status
- Follow Up
Pharmacy will continue to follow.
Vancomycin Follow UP
- -
Patient Age: 54
Patient Sex: Male
Vancomycin Day #: 3
Indication: Skin And Soft Tissue
Requesting Provider: Trung
Height / Weight:
Height 5 ft 8.25 in
Actual Weight 113.1 kg
IBW in k
Adjusted BW in k.5
Pertinent Past Medical History: Alcohol abuse; BMI = 37.5
- Vital Signs / Lab Results
Temp Pulse Resp BP Pulse Ox
100.5 F H 100 29 117/77 97
01/27/25 07:31 01/27/25 03:30 01/27/25 03:30 01/27/25 02:00 01/27/25 03:30
Lab Results - Hematology
01/24/25 01/25/25 01/26/25
20:38 05:02 03:05
WBC 6.0 6.6 4.8
Band Neutrophils 20 H
Lab Results - Chemistry
01/24/25 01/24/25 01/25/25
20:38 22:59 05:02
BUN 14 14 16
Creatinine 1.3 0.9 0.9
Estimated Creat Clear 79 114 114
Albumin 3.0 L 2.4 L
01/25/25 01/26/25 01/27/25
23:26 03:05 01:58
BUN 17 16 17
Creatinine 0.7 0.7 0.9
Estimated Creat Clear > 125 > 125 114
Albumin 2.2 L
01/24/25 01/24/25 01/25/25
20:38 22:59 00:53
Lactic Acid 11.5 H* 4.5 H* 3.2 H
01/25/25 01/25/25 01/25/25
05:01 08:30 12:30
Lactic Acid 1.9 Cancelled Cancelled
Microbiology Results
01/25/25 15:21 MRSA Screen - Final
Nose No Methicillin Resistant Staphylococcus aureus isolated.
01/24/25 20:44 Blood Culture - Preliminary
Blood/Venous No Growth in 48 hours- Final report to follow
01/26/25 08:47 C. difficile GDH Antigen & Toxins - Final
Feces/Stool Negative for toxigenic C.difficile
- Final
Negative for Norovirus GI and GII.
01/24/25 22:59 Urine Culture - Final
Urine No Significant Growth
01/24/25 20:38 Blood Culture - Preliminary
Blood/Venous Positive culture in progress
Gram Stain - Preliminary
Therapeutic Drug Monitoring
Vancomycin Peak 24.0 ug/ml (18-26) 01/27/25 01:58
Vancomycin Trough 16.4 ug/ml (5-20) 01/27/25 05:40
[2025-01-27 12:16] LABS: % Basophils 0.4 % (0-2); % Eosinophils 0.3 % (0-6); % Immature Granulocytes 1.6 % (0-0.5); % Lymphocytes 10.6 % (20.5-51.1); % Monocytes 7.4 % (1.7-9.3); % Neutrophils 79.7 % (42.2-75.2); Absolute Basophils 0.1 10^3/uL (0-0.2); Absolute Immature Granulocytes 0.2 10^3/uL (0-0.05); Absolute Lymphocytes 1.3 10^3/uL (1.2-3.4); Absolute Monocytes 0.9 10^3/uL (0.1-0.6); Absolute Neutrophils 9.4 10^3/uL (1.4-6.5); Hematocrit 29.7 % (39.0-52.0); Hemoglobin 10.5 g/dL (13.0-18.0); Mean Corp Hgb Conc. 35.4 g/dL (33.0-37.0); Mean Corpuscular Hgb 32.3 pg (27.0-31.0); Mean Corpuscular Volume 91.4 fL (80.0-94.0); Mean Platelet Volume 9.8 fL (7.4-10.4); Nucleated Red Blood Cells % 0 % (-); Platelet Count 208 10^3/uL (130-400); Red Blood Cell Count 3.25 10^6/uL (4.70-6.10); Red Cell Dist. Width 14.3 % (11.5-14.5); White Blood Cell Count 11.9 10^3/uL (4.8-10.8)
[2025-01-27 12:49] LABS: Glucose - Point of Care 147 mg/dl (70-99)
--- NOTE | 2025-01-27 12:57 | W.PN.ID1 ---
Date of Service
Date of Service: January 27, 2025
Today's Communication
DC Vanco.
Continue Zosyn.
Assessment / Plan
# BLE wounds with cellulitis (wounds infested with maggots on admission)
# GNR bacteremia, most-likely from wounds
# Fever- low grade
# Severe hyponatremia, resolving
# Alcohol abuse
# Homeless
-CT no Leon's gangrene
- Repeat blood cx's today
-DC VAncomycin
- continue Zosyn for now.
- Continue wound care
- Follow temps/wbc.
Chief Complaint
-: Cellulitis
Subjective / Review of Systems
Feels fine today.
Vital Signs / Physical Exam
Vital Signs
Vital Signs
Temp Pulse Resp BP Pulse Ox
99.9 F 102 34 114/81 94
01/27/25 11:35 01/27/25 10:30 01/27/25 10:30 01/27/25 10:21 01/27/25 10:30
Selected Entries
01/27/25
07:31
Temp 100.5 F H
Physical Exam
Constitutional: No Acute Distress and Non-toxic
Eyes: No Conjunctival Hemorrhage and Sclera Anicteric
Cardiovascular: Regular Rate and S1/S2
Pulmonary: Clear
Gastrointestinal: Soft, Non Tender, Non Distended, Normal Bowel Sounds and Other (FMS: liquid brown stool)
Genito-Urinary: Negative CVA Tenderness
Extremities: Negative Edema
Wound: Other (BLE/perineum dressings dry)
Neurological: AO x 3
Objective Data
Lab Data
Lab Results
01/27/25 11:59
01/27/25 01:58
PT 16.2 Sec (11.4-14.6) H 01/25/25 05:02
INR 1.27 01/25/25 05:02
APTT 32.4 Sec (23.4-35.0) 01/25/25 05:02
Estimated Creat Clear 114 ml/min 01/27/25 01:58
Lactic Acid Cancelled 01/25/25 12:30
Total Bilirubin 1.0 mg/dl (0.2-1.3) 01/26/25 03:05
GGT 202 U/L (15-73) H 01/25/25 05:02
AST 131 U/L (17-59) H 01/26/25 03:05
ALT 66 U/L (0-50) H 01/26/25 03:05
Alkaline Phosphatase 272 U/L (38-126) H 01/26/25 03:05
Most recent labs reviewed.
Micro Results:
01/26/25 08:47 Salmonella/Shigella Culture - Preliminary
Feces/Stool Culture in Progress
Campylobacter Culture - Preliminary
Culture in Progress
Shiga Toxin Test - Final
No E. coli Shiga Toxin 1 or 2 detected.
01/24/25 20:38 Blood Culture - Preliminary
Blood/Venous Positive culture in progress
Gram Stain - Preliminary
01/25/25 15:21 MRSA Screen - Final
Nose No Methicillin Resistant Staphylococcus aureus isolated.
01/27/25 05:40 Blood Culture - Pending
Blood/Venous
01/27/25 05:40 Blood Culture - Pending
Blood/Venous
01/24/25 20:44 Blood Culture - Preliminary
Blood/Venous No Growth in 48 hours- Final report to follow
01/26/25 08:47 C. difficile GDH Antigen & Toxins - Final
Feces/Stool Negative for toxigenic C.difficile
- Final
Negative for Norovirus GI and GII.
01/24/25 22:59 Urine Culture - Final
Urine No Significant Growth
4/25/25 CT a/p, BLE CT:
1. VERY SEVERE DIFFUSE HEPATIC STEATOSIS and mild hepatomegaly.
2. Distended gallbladder without evidence for pericholecystic inflammation.
3. Moderate diffuse pancreatic lipomatosis.
4. Mild chronic bilateral renal disease.
5. Moderate pneumomediastinum.
6. No CT evidence for Leon's gangrene in the perineum.
7. No CT evidence for lower extremity abscess or soft tissue emphysema.
8. Mild diffuse cellulitis throughout the left thigh.
--- NOTE | 2025-01-27 14:25 | WOUNDNOTE ---
RIGHT LATERAL FOOT
--- NOTE | 2025-01-27 14:27 | WOUNDNOTE ---
RIGHT LATERAL THIGH
--- NOTE | 2025-01-27 14:28 | WOUNDNOTE ---
RIGHT LATERAL THIGH
--- NOTE | 2025-01-27 14:29 | WOUNDNOTE ---
RIGHT LOWER LEG
--- NOTE | 2025-01-27 14:32 | WOUNDNOTE ---
LEFT LATERAL THIGH
--- NOTE | 2025-01-27 14:32 | WOUNDNOTE ---
LEFT LOWER LEG
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
[2025-01-27] MEDS: TORADOL 15 MG IV (15:21)
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
[2025-01-27 17:42] LABS: Glucose - Point of Care 102 mg/dl (70-99)
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
[2025-01-27 21:18] LABS: Glucose - Point of Care 89 mg/dl (70-99)
[2025-01-27] MEDS: TYLENOL 650 MG PO (22:36)
[2025-01-28] VITALS (12 sets, daily range): BP systolic 102–136; BP diastolic 70–81
[2025-01-28] MEDS: ZOSYN 50 IV ×4 (01:39→19:36)
[2025-01-28 05:00] LABS: Hematocrit 28.4 % (39.0-52.0); Mean Corp Hgb Conc. 35.2 g/dL (33.0-37.0); Mean Corpuscular Hgb 32.2 pg (27.0-31.0); Mean Corpuscular Volume 91.3 fL (80.0-94.0); Mean Platelet Volume 9.8 fL (7.4-10.4); Platelet Count 213 10^3/uL (130-400); Red Blood Cell Count 3.11 10^6/uL (4.70-6.10); Red Cell Dist. Width 14.6 % (11.5-14.5)
[2025-01-28 05:17] LABS: Blood Urea Nitrogen 18 mg/dl (9-20); Calcium 7.1 mg/dl (8.4-10.2); Carbon Dioxide 26 mmol/L (22-30); Chloride 95 mmol/L (98-107); Estimated Creatinine Clearance 114 ml/min; Glucose 101 mg/dl (70-99); Potassium 3.2 mmol/L (3.5-5.1); Sodium 130 mmol/L (135-145); eGFR > 60.00
[2025-01-28] MEDS: KCL 40 MEQ PO (06:02)
[2025-01-28 07:33] LABS: Glucose - Point of Care 108 mg/dl (70-99)
[2025-01-28] MEDS: HEPARIN 5000 UNITS SC ×2 (08:05→15:49)
[2025-01-28] MEDS: VITAMIN B1 100 MG PO ×2 (08:05→19:36)
[2025-01-28] MEDS: NOVOLOG FLEXPEN-LOW RESISTANCE SC ×3 (08:05→17:09)
[2025-01-28] MEDS: FOLVITE 1 MG PO (08:05)
[2025-01-28] MEDS: PROTONIX 40 MG PO (08:05)
[2025-01-28] MEDS: LUMINAL 32.4 MG PO ×3 (08:05→21:38)
[2025-01-28 08:35] LABS: % Basophils 0.7 % (0-2); % Immature Granulocytes 3.4 % (0-0.5); % Lymphocytes 10.6 % (20.5-51.1); % Monocytes 6.5 % (1.7-9.3); % Neutrophils 78.8 % (42.2-75.2); Absolute Basophils 0.1 10^3/uL (0-0.2); Absolute Immature Granulocytes 0.4 10^3/uL (0-0.05); Absolute Lymphocytes 1.3 10^3/uL (1.2-3.4); Absolute Monocytes 0.8 10^3/uL (0.1-0.6); Absolute Neutrophils 9.5 10^3/uL (1.4-6.5); Nucleated Red Blood Cells % 0 % (-)
--- NOTE | 2025-01-28 10:03 | W.PN.ID1 ---
Date of Service
Date of Service: January 28, 2025
Today's Communication
Continue Zosyn.
Assessment / Plan
# BLE wounds with cellulitis (wounds infested with maggots on admission)
# GNR bacteremia, most-likely from wounds
# Fever- low grade
# Leukocytosis
# Alcohol abuse
# Homeless
-CT no Leon's gangrene
- Repeat blood cx's neg to date
- Stool C. diff neg, norovirus neg, stool cx neg to date
- continue Zosyn (d5)
- Continue wound care
- Low grade temps/tachycardia/leukocytosis possibly from alcohol withdrawal
- Follow temps/wbc.
Chief Complaint
-: Cellulitis
Vital Signs / Physical Exam
Vital Signs
Vital Signs
Temp Pulse Resp BP Pulse Ox
98.9 F 100 27 109/78 95
01/28/25 07:33 01/28/25 06:00 01/28/25 06:00 01/28/25 06:00 01/28/25 06:00
Physical Exam
Constitutional: No Acute Distress and Non-toxic
Eyes: No Conjunctival Hemorrhage and Sclera Anicteric
Cardiovascular: Regular Rate and S1/S2
Pulmonary: Clear
Gastrointestinal: Soft, Non Tender, Non Distended, Normal Bowel Sounds and Other (FMS: liquid brown stool)
Genito-Urinary: Negative CVA Tenderness
Extremities: Negative Edema
Wound: Other (Reviewed 01/27 wound photos. Overall decreased surrounding erythema of wounds. )
Objective Data
Lab Data
Lab Results
01/28/25 04:40
01/28/25 04:40
PT 16.2 Sec (11.4-14.6) H 01/25/25 05:02
INR 1.27 01/25/25 05:02
APTT 32.4 Sec (23.4-35.0) 01/25/25 05:02
Estimated Creat Clear 114 ml/min 01/28/25 04:40
Lactic Acid Cancelled 01/25/25 12:30
Total Bilirubin 1.0 mg/dl (0.2-1.3) 01/26/25 03:05
GGT 202 U/L (15-73) H 01/25/25 05:02
AST 131 U/L (17-59) H 01/26/25 03:05
ALT 66 U/L (0-50) H 01/26/25 03:05
Alkaline Phosphatase 272 U/L (38-126) H 01/26/25 03:05
Most recent labs reviewed.
Micro Results:
01/24/25 20:38 Blood Culture - Preliminary
Blood/Venous Positive culture in progress
Gram Stain - Preliminary
01/27/25 05:40 Blood Culture - Preliminary
Blood/Venous No Growth in 24 hours- Final report to follow
01/27/25 05:40 Blood Culture - Preliminary
Blood/Venous No Growth in 24 hours- Final report to follow
01/24/25 20:44 Blood Culture - Preliminary
Blood/Venous No Growth in 72 hours- Final report to follow
01/26/25 08:47 Salmonella/Shigella Culture - Preliminary
Feces/Stool Culture in Progress
Campylobacter Culture - Preliminary
Culture in Progress
Shiga Toxin Test - Final
No E. coli Shiga Toxin 1 or 2 detected.
01/25/25 15:21 MRSA Screen - Final
Nose No Methicillin Resistant Staphylococcus aureus isolated.
01/26/25 08:47 C. difficile GDH Antigen & Toxins - Final
Feces/Stool Negative for toxigenic C.difficile
- Final
Negative for Norovirus GI and GII.
01/24/25 22:59 Urine Culture - Final
Urine No Significant Growth
01/24/25 CT a/p, BLE CT:
1. VERY SEVERE DIFFUSE HEPATIC STEATOSIS and mild hepatomegaly.
2. Distended gallbladder without evidence for pericholecystic inflammation.
3. Moderate diffuse pancreatic lipomatosis.
4. Mild chronic bilateral renal disease.
5. Moderate pneumomediastinum.
6. No CT evidence for Leno's gangrene in the perineum.
7. No CT evidence for lower extremity abscess or soft tissue emphysema.
8. Mild diffuse cellulitis throughout the left thigh.
[2025-01-28 11:58] LABS: Glucose - Point of Care 118 mg/dl (70-99)
--- NOTE | 2025-01-28 12:57 | PN.CDI ---
CDI
- -
CDI:
Physician Documentation Request
Admit Date: 01/24/25 22:49
Dear Doctor Arturo Camejo,
Patient admitted with bilateral lower extremity wounds with cellulitis with maggot infestation.
01/27 N note, '....unstageable pressure injuries to right and left lateral thighs.'
Physician documentation of the type and location of wounds is required for compliant documentation. Based on the above clinical findings and your assessment, please provide the following in your progress note:
Type (etiology) of ulcer/wound:
- Pressure (decubitus) ulcer
- Other
- Unable to determine
For a pressure ulcer, please also include the stage* of the ulcer:
- Stage 1 - Skin intact, non-blanchable redness
- Stage 2 - Partial thickness loss of dermis, includes intact or open blister
- Stage 3 - Full thickness tissue not including bone, tendon or muscle
- Stage 4 - Full thickness tissue loss, including exposed bone, tendon or muscle
- Unstageable - Full thickness loss in which the base of the ulcer is covered by slough (yellow, campbell, tellez, green or brown) and/or eschar (campbell, brown or black) in the wound bed.
- Unable to determine
Use of terms such as suspected, likely, concern for, or probable (associated with a specific diagnosis that is being evaluated, monitored, or treated as if it exists) are acceptable and can be coded in the inpatient setting, when documented at the
time of discharge.
Thank you,
Mimi PRADO,RN,CCDS
CDI Specialist
Available via [place] text
Please use your independent medical judgment in providing your response.
*Source: National Pressure Ulcer Advisory Panel (NPUAP)
--- NOTE | 2025-01-28 13:09 | PN.CDI ---
CDI
- -
CDI:
Physician Documentation Request
Admit Date: 01/24/25 22:49
Dear Doctor Arturo Camejo,
Patient admitted with bilateral lower extremity wounds with cellulitis with maggot infestation.
01/27 N note, 'Patient admitted with ....unstageable pressure injuries to right and left lateral thighs.'
Physician documentation of the type and location of wounds is required for compliant documentation. Based on the above clinical findings and your assessment, please provide the following in your progress note:
Type (etiology) of ulcer/wound:
- Pressure (decubitus) ulcer
- Other
- Unable to determine
For a pressure ulcer, please also include the stage* of the ulcer:
- Stage 1 - Skin intact, non-blanchable redness
- Stage 2 - Partial thickness loss of dermis, includes intact or open blister
- Stage 3 - Full thickness tissue not including bone, tendon or muscle
- Stage 4 - Full thickness tissue loss, including exposed bone, tendon or muscle
- Unstageable - Full thickness loss in which the base of the ulcer is covered by slough (yellow, campbell, tellez, green or brown) and/or eschar (campbell, brown or black) in the wound bed.
- Unable to determine
Use of terms such as suspected, likely, concern for, or probable (associated with a specific diagnosis that is being evaluated, monitored, or treated as if it exists) are acceptable and can be coded in the inpatient setting, when documented at the
time of discharge.
Thank you,
Mimi PRADO,RN,CCDS
CDI Specialist
Available via [place] text
Please use your independent medical judgment in providing your response.
*Source: National Pressure Ulcer Advisory Panel (NPUAP)
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
[2025-01-28 17:19] LABS: Glucose - Point of Care 117 mg/dl (70-99)
--- NOTE | 2025-01-28 18:02 | PTCARENOTE ---
Addendum entered by Lindsey Castellanos RN 01/28/25 18:09:
[facility] protocol maintained; see worklist.
Original Note:
Assumed care of patient at beginning of this shift from previous RN. Patient Ox3, but forgetful at times with flat affect; speaks in a slow manner. Patient with mod amount of drainage from b/l legs wounds; wound care completed, see worklist. Patient
pleasant when speaking with this nurse, agreeable to hygiene care but did refuse oral care several times today when offered. He also refused to work with PT/OT. Choudhary draining torie, in place d/t wounds; rectal trumpet draining liquid brown.
--- NOTE | 2025-01-28 18:44 | PTCARENOTE ---
pt informed that bag of his clothing remained in the ED [place] room covered in feces. Pt denies wanting any of his clothing and understands that it is being discarded. Pt agreeable.
--- NOTE | 2025-01-28 21:49 | PTCARENOTE ---
received patient from previous RN. Aaamina3, can be forgetful. NSR on monitor. Rectal trumpet in place draining liquid stool. Choudhary in place draining torie urine. BID wound care done. Patient resting in bed with call villalobos in reach.
[2025-01-28 22:37] LABS: Glucose - Point of Care 137 mg/dl (70-99)
[2025-01-29] VITALS (12 sets, daily range): BP systolic 104–128; BP diastolic 75–93
[2025-01-29] MEDS: HEPARIN 5000 UNITS SC ×4 (00:49→23:32)
[2025-01-29] MEDS: ZOSYN 50 IV ×2 (00:49→07:54)
[2025-01-29 05:05] LABS: Hemoglobin 9.1 g/dL (13.0-18.0); Mean Corpuscular Hgb 32.3 pg (27.0-31.0); Mean Corpuscular Volume 92.2 fL (80.0-94.0); Mean Platelet Volume 9.8 fL (7.4-10.4); Platelet Count 244 10^3/uL (130-400); Red Blood Cell Count 2.82 10^6/uL (4.70-6.10); Red Cell Dist. Width 14.6 % (11.5-14.5); White Blood Cell Count 8.9 10^3/uL (4.8-10.8)
[2025-01-29 05:21] LABS: ALT (SGPT) 61 U/L (0-50); AST (SGOT) 161 U/L (17-59); Alkaline Phosphatase 267 U/L (38-126); Blood Urea Nitrogen 12 mg/dl (9-20); Calcium 7.1 mg/dl (8.4-10.2); Carbon Dioxide 27 mmol/L (22-30); Chloride 96 mmol/L (98-107); Estimated Creatinine Clearance > 125 ml/min; Glucose 103 mg/dl (70-99); Sodium 131 mmol/L (135-145); Total Bilirubin 0.8 mg/dl (0.2-1.3); Total Protein 4.6 g/dl (6.3-8.2); eGFR > 60.00
[2025-01-29] MEDS: KCL 40 MEQ PO ×2 (05:39→17:06)
[2025-01-29] MEDS: NOVOLOG FLEXPEN-LOW RESISTANCE SC ×3 (07:37→16:44)
[2025-01-29 07:41] LABS: Glucose - Point of Care 102 mg/dl (70-99)
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
[2025-01-29 07:48] LABS: Absolute Neutrophils -Man Diff 6.4 10^3/uL (1.4-6.5); Anisocytosis 1+; Band Neutrophils 5 % (0-3); Eosinophils 2 % (0-6); Lymphocytes 14 % (20-51); Metamyelocytes 3 % (-); Monocytes 9 % (2-9); Normal RBC Morphology No; Platelets Checked Yes; Segmented Neutrophils 67 % (42-75)
[2025-01-29 07:49] LABS: Hypochromasia Slight; Total Cells Counted 100
[2025-01-29] MEDS: LUMINAL 32.4 MG PO ×3 (07:54→20:30)
[2025-01-29] MEDS: FOLVITE 1 MG PO (07:54)
[2025-01-29] MEDS: VITAMIN B1 100 MG PO ×2 (07:54→20:30)
[2025-01-29] MEDS: PROTONIX 40 MG PO (07:54)
--- NOTE | 2025-01-29 10:13 | PTCARENOTE ---
"Assumed care of patient at beginning of this shift from previous RN. Patient Ox3, pleasant this morning; he did refuse mouth care and refused PT/OT. Per report, patient had episode last night of desat to 60s. Currently 95% on RA. Dr Morris and "Angle made aware via TT. "
[2025-01-29 11:59] LABS: Glucose - Point of Care 96 mg/dl (70-99)
[2025-01-29 12:04] LABS: Iron 24 ug/dl (49-181)
[2025-01-29 12:14] LABS: Percent Saturation 16 % (20-50); Total Iron Binding Capacity 147 ug/dl (261-462)
[2025-01-29] MEDS: DESENEX/MITRAZOL/ZEASORB 1 APPLIC TOPICAL ×2 (12:35→20:35)
[2025-01-29] MEDS: IMODIUM 4 MG PO (12:35)
--- NOTE | 2025-01-29 12:55 | W.PN.ID1 ---
Date of Service
Date of Service: January 29, 2025
Today's Communication
Transition Zosyn to doxycycline 100mg po bid through 02/02/25
ID will sign off.
Assessment / Plan
# BLE wounds with cellulitis (wounds infested with maggots on admission)
# Serratia bacteremia, most-likely from wounds
# Fever- resolved
# Leukocytosis -resolved
# Alcohol abuse
# Homeless
-CT no Leon's gangrene
- Repeat blood cx's neg to date
- Stool C. diff neg, norovirus neg, stool cx neg
- Continue wound care
- Transition Zosyn (d6) to doxycycline 100mg po bid through 02/02/25.
ID will sign off.
Chief Complaint
-: Cellulitis
Subjective / Review of Systems
No complaints today.
Vital Signs / Physical Exam
Vital Signs
Vital Signs
Temp Pulse Resp BP Pulse Ox
99.4 F 98 29 128/88 93
01/29/25 07:15 01/29/25 08:00 01/29/25 08:00 01/29/25 08:00 01/29/25 08:48
Physical Exam
Constitutional: No Acute Distress and Non-toxic
Eyes: No Conjunctival Hemorrhage and Sclera Anicteric
Cardiovascular: Regular Rate and S1/S2
Pulmonary: Clear
Gastrointestinal: Soft, Non Tender, Non Distended and Normal Bowel Sounds
Genito-Urinary: Negative CVA Tenderness
Extremities: Negative Edema
Wound: Other (Dressings dry)
Neurological: Awake and Alert
Objective Data
Lab Data
Lab Results
01/29/25 04:31
01/29/25 04:31
PT 16.2 Sec (11.4-14.6) H 01/25/25 05:02
INR 1.27 01/25/25 05:02
APTT 32.4 Sec (23.4-35.0) 01/25/25 05:02
Estimated Creat Clear > 125 ml/min 01/29/25 04:31
Lactic Acid Cancelled 01/25/25 12:30
Total Bilirubin 0.8 mg/dl (0.2-1.3) 01/29/25 04:31
GGT 202 U/L (15-73) H 01/25/25 05:02
AST 161 U/L (17-59) H 01/29/25 04:31
ALT 61 U/L (0-50) H 01/29/25 04:31
Alkaline Phosphatase 267 U/L (38-126) H 01/29/25 04:31
Most recent labs reviewed.
Micro Results:
01/24/25 20:38 Blood Culture - Preliminary
Blood/Venous Morganella morganii
Gram Stain - Preliminary
01/27/25 05:40 Blood Culture - Preliminary
Blood/Venous No Growth in 48 hours- Final report to follow
01/27/25 05:40 Blood Culture - Preliminary
Blood/Venous No Growth in 48 hours- Final report to follow
01/24/25 20:44 Blood Culture - Preliminary
Blood/Venous No Growth in 4 days- Final report to follow
01/26/25 08:47 Salmonella/Shigella Culture - Final
Feces/Stool No Salmonella, Shigella, Aeromonas or Plesiomonas species
isolated.
Campylobacter Culture - Final
No Campylobacter species isolated.
Shiga Toxin Test - Final
No E. coli Shiga Toxin 1 or 2 detected.
01/25/25 15:21 MRSA Screen - Final
Nose No Methicillin Resistant Staphylococcus aureus isolated.
01/26/25 08:47 C. difficile GDH Antigen & Toxins - Final
Feces/Stool Negative for toxigenic C.difficile
- Final
Negative for Norovirus GI and GII.
01/24/25 22:59 Urine Culture - Final
Urine No Significant Growth
01/24/25 CT a/p, BLE CT:
1. VERY SEVERE DIFFUSE HEPATIC STEATOSIS and mild hepatomegaly.
2. Distended gallbladder without evidence for pericholecystic inflammation.
3. Moderate diffuse pancreatic lipomatosis.
4. Mild chronic bilateral renal disease.
5. Moderate pneumomediastinum.
6. No CT evidence for Leon's gangrene in the perineum.
7. No CT evidence for lower extremity abscess or soft tissue emphysema.
8. Mild diffuse cellulitis throughout the left thigh.
[2025-01-29] MEDS: IMODIUM LIQUID 4 MG PO (13:36)
--- NOTE | 2025-01-29 15:14 | W.PN.UPDATE ---
Update Note
Progress Note Update
patient seen chart reviewed. discussed with nursing and with hospitalist resident. the patient is depressed. he would like to be on antidepressants. his sodium is still low and i would be reluctant to start an antidepressant until it is in the
normal range. antidepressants take weeks to work and if it is a matter of a few days then i don't see the disadvantage of waiting. he was taking paxil for depression in the past 20 mg. the patient tells me it is his plan to go home to live with mom
and attend aa. he also says mom has a pfa against him and unless she gets that removed i do not advise him going home to her house.. he said when she evicted him he got a cab to the [facility] and was living there behind the building for about two weeks.
'at least it wasn't cold out '. given recent hx he really should go to a rehab that is in patient but he is not interested. even if he does not have MA currently the [facility] would likely fund him to go to a rehab. he has not needed ativan as per
msas since january 26. he appeared calm . he was not tremulous or sweating at this point. he denied suicidality
--- NOTE | 2025-01-29 15:55 | PTCARENOTE ---
Wound care completed. Rectal trumpet replaced; Imodium given as per one time order. Patient continues to refuse oral care. MSAS completed as per protocol.
[2025-01-29 16:55] LABS: Glucose - Point of Care 119 mg/dl (70-99)
[2025-01-29] MEDS: VIBRAMYCIN 100 MG PO (20:30)
[2025-01-29 21:45] LABS: Glucose - Point of Care 109 mg/dl (70-99)
[2025-01-30] VITALS (9 sets, daily range): BP systolic 114–147; BP diastolic 73–106; PULSE 104–107; O2SAT 95
--- NOTE | 2025-01-30 04:12 | PTCARENOTE ---
Patient refused oral care and wound care this morning. stated that 'we are brutal and he wants to sleep'. Patient said he would allow after breakfast.
[2025-01-30 04:24] LABS: Hematocrit 26.6 % (39.0-52.0); Hemoglobin 9.5 g/dL (13.0-18.0); Mean Corp Hgb Conc. 35.7 g/dL (33.0-37.0); Mean Corpuscular Hgb 32.2 pg (27.0-31.0); Mean Corpuscular Volume 90.2 fL (80.0-94.0); Mean Platelet Volume 9.9 fL (7.4-10.4); Platelet Count 252 10^3/uL (130-400); Red Blood Cell Count 2.95 10^6/uL (4.70-6.10); Red Cell Dist. Width 14.4 % (11.5-14.5); White Blood Cell Count 9.5 10^3/uL (4.8-10.8)
[2025-01-30 04:45] LABS: Blood Urea Nitrogen 10 mg/dl (9-20); Calcium 7.3 mg/dl (8.4-10.2); Carbon Dioxide 28 mmol/L (22-30); Chloride 100 mmol/L (98-107); Estimated Creatinine Clearance > 125 ml/min; Glucose 106 mg/dl (70-99); Potassium 3.5 mmol/L (3.5-5.1); Sodium 134 mmol/L (135-145); eGFR > 60.00
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
[2025-01-30 07:46] LABS: Absolute Neutrophils -Man Diff 6.8 10^3/uL (1.4-6.5); Band Neutrophils 4 % (0-3); Eosinophils 2 % (0-6); Lymphocytes 15 % (20-51); Metamyelocytes 1 % (-); Monocytes 6 % (2-9); Myelocytes 4 % (-); Segmented Neutrophils 68 % (42-75)
[2025-01-30 07:47] LABS: Anisocytosis 1+; Hypochromasia Slight; Normal RBC Morphology No; Platelets Checked Yes; Polychromasia Slight; Total Cells Counted 100
[2025-01-30 08:21] LABS: Glucose - Point of Care 113 mg/dl (70-99)
[2025-01-30] MEDS: NOVOLOG FLEXPEN-LOW RESISTANCE SC ×3 (09:00→18:17)
[2025-01-30] MEDS: VITAMIN B1 100 MG PO ×2 (09:01→19:33)
[2025-01-30] MEDS: FOLVITE 1 MG PO (09:01)
[2025-01-30] MEDS: PROTONIX 40 MG PO ×2 (09:01→19:33)
[2025-01-30] MEDS: IMODIUM 2 MG PO ×2 (09:01→13:14)
[2025-01-30] MEDS: VIBRAMYCIN 100 MG PO ×2 (09:01→19:33)
[2025-01-30] MEDS: HEPARIN 5000 UNITS SC (09:15)
[2025-01-30] MEDS: DESENEX/MITRAZOL/ZEASORB 1 APPLIC TOPICAL ×2 (09:16→19:34)
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
[2025-01-30] MEDS: KCL 20 MEQ PO (11:21)
[2025-01-30] MEDS: TYLENOL 650 MG PO ×2 (11:22→22:29)
[2025-01-30 11:33] LABS: Vitamin B12 915 pg/ml (239-931)
[2025-01-30] MEDS: TORADOL 15 MG IV (12:56)
--- NOTE | 2025-01-30 13:26 | WOUNDNOTE ---
[facility] RN NOTE: Patient visited to today to follow up on wounds. Right and left thighs remain very wet, but overall skin integrity has improved since last assessment. The thighs were cleaned, barrier ointment applied, and then wet areas were covered
with alginate, ABD and secured with mesh pants. Knee wounds appear clean and with less drainage. Wound care changed to Xeroform dressing. Continue use of barrier ointment to perineum. Maximum strength Desitin ordered today. Penis improved, continue
Vaseline. FAMILIA Pan tried to get patient into shower chair today but he was too weak. Patient explained he is afraid of diarrhea and does not want to eat. FAMILIA Pan gave patient Imodium and ordered patient high protein lunch including yogurt. Viviane
encouraged patient to eat to promote healing. Rectal tube has been removed and man remains. Patient has air cushion to chair and heels off-loaded with pillows under calves. Will confirm orders with Dr. Gonzales. Will continue to follow during
in-patient stay.
--- NOTE | 2025-01-30 13:27 | PTCARENOTE ---
Heme check stool positive- sample from expelled rectal trumpet. Will repeat with next bm. PRN Immodium given x2 this shift. Poor appetite-'I just want it to stop' - encouraging meals will order modified gut friendly foods.
--- NOTE | 2025-01-30 13:52 | WOUNDNOTE ---
LEFT LOWER LEG
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
[2025-01-30 18:08] LABS: Glucose - Point of Care 115 mg/dl (70-99)
--- NOTE | 2025-01-30 18:35 | TRANSFER ---
Report given to Will - transport via stretcher. Meal ordered to be sent there.
--- NOTE | 2025-01-30 18:55 | PTCARENOTE ---
No further stools noted today- appetite remains poor but agreeable to pick at the same variety he had for lunch today- yogurt, broth, jello, toast, magdalena glenn.
--- NOTE | 2025-01-30 20:33 | PTCARENOTE ---
Patient a transfer from IMU. PAtient AAOx3, able to make needs known. IV flushed and patent. Patient x1 from stretcher to bed.
[2025-01-30 21:48] LABS: Glucose - Point of Care 115 mg/dl (70-99)
[2025-01-31 07:32] LABS: Glucose - Point of Care 92 mg/dl (70-99)
[2025-01-31 08:05] LABS: Hematocrit 27.4 % (39.0-52.0); Hemoglobin 9.5 g/dL (13.0-18.0); Mean Corp Hgb Conc. 34.7 g/dL (33.0-37.0); Mean Corpuscular Hgb 32.8 pg (27.0-31.0); Mean Corpuscular Volume 94.5 fL (80.0-94.0); Platelet Count 321 10^3/uL (130-400); Red Cell Dist. Width 15.3 % (11.5-14.5); White Blood Cell Count 10.7 10^3/uL (4.8-10.8)
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
[2025-01-31] MEDS: NOVOLOG FLEXPEN-LOW RESISTANCE SC ×3 (08:38→17:02)
[2025-01-31] MEDS: FOLVITE 1 MG PO (08:53)
[2025-01-31] MEDS: VIBRAMYCIN 100 MG PO ×2 (08:53→19:13)
[2025-01-31] MEDS: PROTONIX 40 MG PO ×2 (08:53→19:13)
[2025-01-31] MEDS: VITAMIN B1 100 MG PO ×2 (08:53→19:13)
[2025-01-31] MEDS: DESENEX/MITRAZOL/ZEASORB 1 APPLIC TOPICAL ×2 (08:54→19:13)
[2025-01-31] MEDS: DESITIN MAXIMUM STRENGTH PASTE 1 APPLIC TOPICAL (08:57)
[2025-01-31 09:03] VITALS: BP 131/85
[2025-01-31 09:04] LABS: Blood Urea Nitrogen 8 mg/dl (9-20); Calcium 7.3 mg/dl (8.4-10.2); Carbon Dioxide 23 mmol/L (22-30); Chloride 101 mmol/L (98-107); Estimated Creatinine Clearance > 125 ml/min; Glucose 91 mg/dl (70-99); Potassium 3.9 mmol/L (3.5-5.1); Sodium 133 mmol/L (135-145); eGFR > 60.00
--- NOTE | 2025-01-31 10:17 | W.PN.UPDATE ---
Update Note
Progress Note Update
patient seen chart reviewed. discussed with nursing. this is a LATE entry for a visit which occurred yesterday on jan 30 2025. the patient was more alert and able to engage he acknowledged his depression but today he was agreeable to get oob and
participate with PT which he had been reluctant to do in the past. i also spoke with PT who informed me of the improvement in patient's participation. his serum sodium is now 134 and likely will continue to increase into the normal range. spoke
with dr reich who opines that dr monteiro had seen him and the sodium felt to be autocorrecting and likely secondary to volume depletion requiring no further rx. patient agreeable to starting antidep lexapro 10 mg daily. he is also agreeable to
considering alternatives to going home w mom since that is not very likely. would like [facility] to see him again and make suggestions.
--- NOTE | 2025-01-31 11:27 | CM ---
Addendum entered by Anca Logan 01/31/25 13:58:
Physicians physician has completed disability form to assist with obtaining insurance for patient.
Addendum entered by Anca Logan 01/31/25 12:01:
Referrals sent to [facility] and [facility].
Original Note:
Chart reviewed and director case management met with patient this am, director case management reviewed options, skilled inpatient D&A and patient reluctant to make a decision, director case management then offered patient inpatient treatment v's a senior care and patient has selected
inpatient treatment, referral sent to [facility]. Patient has no insurance and plan will be to submit for community health funding, patient has less options with community health funding for placement and per patient he does not have ID. Patient needs to provided ID
to prove that he a resident of [facility] before the community health will pay for placement.
Patient's mother was contacted and she will prove a letter of proof to [facility] today and they will submit to community health office for inpatient treatment for patient.
Plan; Inpatient treatment. [facility] are following patient.
[2025-01-31 12:02] LABS: Glucose - Point of Care 105 mg/dl (70-99)
[2025-01-31] MEDS: LEXAPRO 10 MG PO (12:24)
--- NOTE | 2025-01-31 12:27 | PTCARENOTE ---
Patient is refusing wound care. RN explained to patient importance of daily wound care dressing changes and reinforced infection prevention education. Pt still refusing wound care, told me, 'I am fragile and very frustrated. I want to begin wound
care tomorrow'. RN explained to patient that she is here until 7p and is available to complete wound care orders until then. RN relayed above info to psychiatry would was rounding on patient during wound care refusal. Pt is frustrated at how back
and forth discharge plans seem to be. RN expressed to patient that our team is working hard to get him into a facility that best fits his needs right now, and that plans may change based on facility availability and wound care needs. Please see
MAR/flowsheets for further care details.
--- NOTE | 2025-01-31 13:22 | W.PN.UPDATE ---
Update Note
Progress Note Update
patient seen chart reviewed. spoke with nursing. [facility] mother [facility] . the patient initially refused to have his wound care done this am. he said he would do it 'tomorrow'. impressed upon him that this is VERY important and
tomorrow is not an option he did agree to do it today and i notified nursing. mother provided more hx. patient has been depressed and anxious for much of his life. he has made attempts to work often unsuccessfully. his mother sister and niece are
depressed and anxious and all take lexapro. mom was unaware of the complications of a PFA and at this point patient unable to return home due to pfa. he is just starting on lexapro too soon for a + effect. discussed w mother, cm and PT how to
proceed with rx for patient . given that he has no insurance placements could be difficult. filled out the form to establish he is disabled which he truly is for the purpose of obtaining medical assistance . will continue to follow
[2025-01-31 14:51] VITALS: BP 128/88; BP 138/70
[2025-01-31 15:00] VITALS: BP 138/88
[2025-01-31 16:50] LABS: Glucose - Point of Care 120 mg/dl (70-99)
[2025-01-31 21:18] LABS: Glucose - Point of Care 106 mg/dl (70-99)
[2025-01-31] MEDS: TYLENOL 650 MG PO (22:29)
[2025-01-31 23:22] VITALS: BP 126/82
[2025-02-01 07:00] VITALS: BP 128/91
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
[2025-02-01 08:49] LABS: Blood Urea Nitrogen 9 mg/dl (9-20); Calcium 7.3 mg/dl (8.4-10.2); Carbon Dioxide 25 mmol/L (22-30); Chloride 101 mmol/L (98-107); Estimated Creatinine Clearance > 125 ml/min; Glucose 89 mg/dl (70-99); Sodium 133 mmol/L (135-145); eGFR > 60.00
[2025-02-01 09:00] LABS: Hematocrit 27.2 % (39.0-52.0); Hemoglobin 9.3 g/dL (13.0-18.0); Mean Corp Hgb Conc. 34.2 g/dL (33.0-37.0); Mean Corpuscular Hgb 32.1 pg (27.0-31.0); Mean Corpuscular Volume 93.8 fL (80.0-94.0); Mean Platelet Volume 10.1 fL (7.4-10.4); Platelet Count 379 10^3/uL (130-400); Red Cell Dist. Width 15.3 % (11.5-14.5); White Blood Cell Count 14.6 10^3/uL (4.8-10.8)
[2025-02-01 10:07] LABS: Glucose - Point of Care 109 mg/dl (70-99)
[2025-02-01] MEDS: NOVOLOG FLEXPEN-LOW RESISTANCE SC ×3 (10:14→17:34)
[2025-02-01] MEDS: PROTONIX 40 MG PO ×2 (10:17→19:25)
[2025-02-01] MEDS: LEXAPRO 10 MG PO (10:17)
[2025-02-01] MEDS: VITAMIN B1 100 MG PO ×2 (10:17→19:25)
[2025-02-01] MEDS: VIBRAMYCIN 100 MG PO (10:17)
[2025-02-01] MEDS: FOLVITE 1 MG PO (10:17)
--- NOTE | 2025-02-01 10:48 | CM ---
Chart reviewed and employment case manager reached out to [employer] and patient had been approved and accepted at [facility] today, patient requires [facility] funding and difficult to place, employment case manager reached out to patient's physician and patient has not been
cleared for discharge today.
Plan; Inpatient treatment at [facility] or [facility] when stable.
--- NOTE | 2025-02-01 11:32 | W.PN.UPDATE ---
Update Note
Progress Note Update
Patient is feeling powerless, states he is not in control of decisions being made on his behalf. He does understand that ultimately he needs to accept a rehab that has beds and would take him given his not having medical insurance.
He was started on Lexapro 10 mg daily, too early to assess effectiveness.
Sodium level is 133 so we need to continue monitoring.
[2025-02-01 11:58] LABS: % Basophils 0.6 % (0-2); % Immature Granulocytes 7.2 % (0-0.5); % Lymphocytes 10.3 % (20.5-51.1); % Monocytes 9.7 % (1.7-9.3); % Neutrophils 72.2 % (42.2-75.2); Absolute Basophils 0.1 10^3/uL (0-0.2); Absolute Immature Granulocytes 1.1 10^3/uL (0-0.05); Absolute Lymphocytes 1.5 10^3/uL (1.2-3.4); Absolute Monocytes 1.4 10^3/uL (0.1-0.6); Absolute Neutrophils 10.5 10^3/uL (1.4-6.5); Nucleated Red Blood Cells % 0 % (-)
--- NOTE | 2025-02-01 12:00 | PTCARENOTE ---
Patient refusing to shower. States he will shower tomorrow.
[2025-02-01] MEDS: TYLENOL 650 MG PO (13:33)
--- NOTE | 2025-02-01 14:00 | PTCARENOTE ---
All dressing changed per MD order.
[2025-02-01] MEDS: DESENEX/MITRAZOL/ZEASORB 1 APPLIC TOPICAL ×2 (14:34→19:25)
[2025-02-01] MEDS: DESITIN MAXIMUM STRENGTH PASTE 1 APPLIC TOPICAL (14:35)
[2025-02-01 15:00] VITALS: BP 131/86
[2025-02-01 16:05] LABS: Glucose - Point of Care 88 mg/dl (70-99)
[2025-02-01] MEDS: ROCEPHIN 1000 MG IV (16:15)
[2025-02-01] MEDS: STERILE WATER FOR INJECTION 10 ML IV (16:15)
[2025-02-01 16:21] LABS: Urine Albumin 2+ (Neg - Trace); Urine Bilirubin Negative (Negative); Urine Character Clear (Clear); Urine Color Amber; Urine Glucose Negative (Negative); Urine Ketone 2+ (Negative); Urine Leukocyte 1+ (Negative); Urine Nitrite Negative (Negative); Urine Occult Blood 1+ (Negative); Urine Specific Gravity 1.015 (<1.030); Urine Urobilinogen Negative (Neg - 1+); Urine pH 6.5 (5.0-9.0)
[2025-02-01 16:54] LABS: Urine Bacteria Few (Negative); Urine Red Blood Cell 0-2 /HPF (0-2); Urine Squamous Cell 0-2 /LPF (Few)
[2025-02-01 17:33] LABS: Glucose - Point of Care 105 mg/dl (70-99)
[2025-02-01] MEDS: MELATONIN 5 MG PO (20:24)
[2025-02-01 21:55] LABS: Glucose - Point of Care 99 mg/dl (70-99)
[2025-02-01 23:19] VITALS: BP 120/72
[2025-02-02 07:00] VITALS: BP 131/88
[2025-02-02 07:17] LABS: Blood Urea Nitrogen 10 mg/dl (9-20); Calcium 7.3 mg/dl (8.4-10.2); Carbon Dioxide 23 mmol/L (22-30); Chloride 101 mmol/L (98-107); Estimated Creatinine Clearance > 125 ml/min; Glucose 87 mg/dl (70-99); Potassium 3.5 mmol/L (3.5-5.1); Sodium 133 mmol/L (135-145); eGFR > 60.00
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
[2025-02-02 08:39] LABS: Glucose - Point of Care 82 mg/dl (70-99)
[2025-02-02] MEDS: NOVOLOG FLEXPEN-LOW RESISTANCE SC ×3 (08:42→17:45)
[2025-02-02] MEDS: LEXAPRO 10 MG PO (10:45)
[2025-02-02] MEDS: PROTONIX 40 MG PO ×2 (10:45→19:11)
[2025-02-02] MEDS: VITAMIN B1 100 MG PO ×2 (10:45→19:12)
[2025-02-02] MEDS: FOLVITE 1 MG PO (10:47)
--- NOTE | 2025-02-02 11:07 | W.PN.UPDATE ---
Update Note
Progress Note Update
Patient is in better mood, accepts the need to go to rehab.
Discussed different techniques to maintain sobriety.; he has keen interest in literature and movies.
Would continue the Lexapro 10 mg daily.
[2025-02-02 11:08] LABS: % Basophils 0.5 % (0-2); % Immature Granulocytes 4.4 % (0-0.5); % Lymphocytes 9.3 % (20.5-51.1); % Monocytes 8.4 % (1.7-9.3); % Neutrophils 77.4 % (42.2-75.2); Absolute Basophils 0.1 10^3/uL (0-0.2); Absolute Immature Granulocytes 0.6 10^3/uL (0-0.05); Absolute Lymphocytes 1.2 10^3/uL (1.2-3.4); Absolute Monocytes 1.1 10^3/uL (0.1-0.6); Absolute Neutrophils 10.2 10^3/uL (1.4-6.5); Hemoglobin 9.3 g/dL (13.0-18.0); Mean Corp Hgb Conc. 33.2 g/dL (33.0-37.0); Mean Corpuscular Volume 96.2 fL (80.0-94.0); Mean Platelet Volume 10.2 fL (7.4-10.4); Nucleated Red Blood Cells % 0 % (-); Platelet Count 441 10^3/uL (130-400); Red Blood Cell Count 2.91 10^6/uL (4.70-6.10); Red Cell Dist. Width 15.3 % (11.5-14.5); White Blood Cell Count 13.2 10^3/uL (4.8-10.8)
--- NOTE | 2025-02-02 11:55 | CM ---
Addendum entered by Nicole Owusu 02/02/25 16:07:
SARAH spoke with Son/GERSON this afternoon. Confirmed that [facility] and [facility] have both medically accepted [facility] and his [facility] funding for placement as been approved however both facilities are currently full. Where pt dc's to is depends
on which one opens a Country funded bed first (this has been known to take up to several days at times). CM will need to f/u with Son to notify him that pt is medically clear for dc.
Original Note:
CM reviewed chart. Spoke with Attending. Left HIPPA compliant message for Son/GERSON. Pt possible for dc tomorrow.
Floor CM/SW covering tomorrow will need to follow up with all parties.
--- NOTE | 2025-02-02 12:41 | W.PN.UPDATE ---
Update Note
Progress Note Update
Seen and examined by me independently in collaboration with the medical claims manager.
Lab data and imaging data reviewed.
Addendum as below :
Patient feels improved, motivated and had a good lunch today.
Is getting out of the bed and using the bathroom himself. He plans to have a shower today.
No fever chills.
Nontoxic.
Urine analysis shows no pyuria. Blood cultures pending.
Resolved fever. Improving white count. Continue with current antibiotics and follow blood culture data.
Likely DCin am to [facility] if continued improvement.
[2025-02-02 12:45] LABS: Glucose - Point of Care 126 mg/dl (70-99)
[2025-02-02 15:00] VITALS: BP 119/85
--- NOTE | 2025-02-02 16:00 | PTCARENOTE ---
Patient encouraged to shower. After shower, dressings changed per MD order. Patient educated about proper hygiene and nutrition to optimize wound healing. Patient agreeable. MD contacted for ensure.
[2025-02-02] MEDS: DESITIN MAXIMUM STRENGTH PASTE 1 APPLIC TOPICAL (16:17)
[2025-02-02] MEDS: STERILE WATER FOR INJECTION 10 ML IV (16:17)
[2025-02-02] MEDS: ROCEPHIN 1000 MG IV (16:17)
[2025-02-02] MEDS: DESENEX/MITRAZOL/ZEASORB 1 APPLIC TOPICAL ×2 (16:18→19:12)
[2025-02-02 17:45] LABS: Glucose - Point of Care 106 mg/dl (70-99)
[2025-02-02] MEDS: HEPARIN 5000 UNITS SC ×2 (17:46→23:06)
[2025-02-02] MEDS: MAALOX PLUS 1 TABLET PO (19:18)
[2025-02-02 23:00] VITALS: BP 115/76
[2025-02-03 07:00] VITALS: BP 126/85
[2025-02-03 07:22] LABS: Glucose - Point of Care 109 mg/dl (70-99)
[2025-02-03] MEDS: NOVOLOG FLEXPEN-LOW RESISTANCE SC ×2 (07:29→12:43)
[2025-02-03] MEDS: HEPARIN 5000 UNITS SC (08:38)
[2025-02-03] MEDS: PROTONIX 40 MG PO (08:39)
[2025-02-03] MEDS: FOLVITE 1 MG PO (08:39)
[2025-02-03] MEDS: VITAMIN B1 100 MG PO (08:39)
[2025-02-03] MEDS: LEXAPRO 10 MG PO (08:39)
[2025-02-03 08:40] LABS: % Basophils 0.9 % (0-2); % Immature Granulocytes 3.3 % (0-0.5); % Lymphocytes 13.2 % (20.5-51.1); % Monocytes 9.1 % (1.7-9.3); % Neutrophils 73.5 % (42.2-75.2); Absolute Basophils 0.1 10^3/uL (0-0.2); Absolute Immature Granulocytes 0.4 10^3/uL (0-0.05); Absolute Lymphocytes 1.4 10^3/uL (1.2-3.4); Absolute Neutrophils 7.7 10^3/uL (1.4-6.5); Hematocrit 27.8 % (39.0-52.0); Hemoglobin 9.3 g/dL (13.0-18.0); Mean Corp Hgb Conc. 33.5 g/dL (33.0-37.0); Mean Corpuscular Hgb 31.5 pg (27.0-31.0); Mean Corpuscular Volume 94.2 fL (80.0-94.0); Nucleated Red Blood Cells % 0 % (-); Platelet Count 508 10^3/uL (130-400); Red Blood Cell Count 2.95 10^6/uL (4.70-6.10); Red Cell Dist. Width 15.1 % (11.5-14.5); White Blood Cell Count 10.5 10^3/uL (4.8-10.8)
[2025-02-03] MEDS: DESENEX/MITRAZOL/ZEASORB 1 APPLIC TOPICAL (08:45)
[2025-02-03 09:20] LABS: Blood Urea Nitrogen 10 mg/dl (9-20); Calcium 7.4 mg/dl (8.4-10.2); Carbon Dioxide 26 mmol/L (22-30); Chloride 101 mmol/L (98-107); Estimated Creatinine Clearance > 125 ml/min; Glucose 96 mg/dl (70-99); Potassium 3.7 mmol/L (3.5-5.1); Sodium 134 mmol/L (135-145); eGFR > 60.00
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
[2025-02-03] MEDS: TORADOL 15 MG IV (11:29)
--- NOTE | 2025-02-03 11:35 | CM ---
Addendum entered by Anca Logan 02/03/25 14:32:
[facility] to send transport to pick patient up at 2:45pm today.
Original Note:
Chart reviewed and correctional case manager met with patient this am, and per [facility] there are no [facility] beds available at [facility] today, GERSON reached out to [facility] and correctional case manager faxed over updated clinical notes and [facility] can accept
patient today. Physicians made aware.
Plan; Patient to transfer to [facility] today.
[2025-02-03 12:10] LABS: Glucose - Point of Care 95 mg/dl (70-99)
[2025-02-03] MEDS: DESITIN MAXIMUM STRENGTH PASTE 1 APPLIC TOPICAL (12:17)
[2025-02-03] MEDS: ROCEPHIN 1000 MG IV (13:57)
[2025-02-03] MEDS: STERILE WATER FOR INJECTION 10 ML IV (13:57)
--- NOTE | 2025-02-03 14:08 | W.PN.UPDATE ---
Update Note
Progress Note Update
Pt seen, chart reviewed. Pt tolerating trial of Lexapro 10 mg daily for anxiety/depression. Pt seen, resting in bed, with stable affect. Pt reportedly accepted at [facility] for alcohol rehab. Pt c/o insomnia, asking for Doxepin and magnesium
supplement.
Imp: Alcohol Use d/o, severe
Unspecified anxiety, depression, stable
Rec: continue Lexapro 10 mg daily. Pt appears psychiatrically stable for discharge. Outpatient med mgt and therapy, after alcohol rehab
[2025-02-03] MEDS: TYLENOL 650 MG PO (14:10)
[2025-02-03 14:45] VITALS: BP 126/85
--- NOTE | 2025-02-03 19:19 | W.DCSUMMARY ---
Addendum entered and electronically signed by Landen Jean-Baptiste MD 02/05/25 00:42:
Read, reviewed, and agree. See same day progress note for additional details.
Adriano Jean-Baptiste MD
Original Note:
Documented by User: Tarun Allen MD, Resident 02/04/25 21:06
Discharge Summary
Discharge Data
Date of Admission: 01/24/25
Date of Discharge: 02/03/25
-
Pending Results: No
Hospital Course
Discharging Physician :
Princess Schuster
Disposition :
[facility]/SNF
Primary care physician :
Unknown
Principal Discharge diagnosis :
Lactic acidosis, alcohol intoxication, sepsis secondary to ulcers
Chronic Discharge diagnosis :
Hepatic steatosis and alcohol gastritis
Hyperglycemic, prediabetes
History of depression and suicidality
Hospital Course :
1. Bilateral, lower extremity wounds with cellulitis, maggot infestation
Presented with bilateral wounds on both legs that were infested with maggots, CT abdomen pelvis was done that ruled out any gangrene, surgical consultation was done- suggested that there was no need of any debridement
ID was consulted and patient was started on doxycycline 100 mg twice daily for 5 days
Final culture Morganella Morganii.
Miconazole cream was used for scrotal ulcers
Patient responded well to the treatment and the wounds were healing well
Blood culture and urine culture negative
2.Electrolyte derangements
Hyponatremia
- With low chloride as well as low urine sodium, presentation more consistent with hypovolemia rather than beer potomania
- Patient responded well to normal saline boluses as well as received 3% NS
- Urine studies not consistent with SIADH
- Sodium level stable on discharge
Hypokalemia
- Likely secondary to GI loss and poor oral intake
- Now resolved
3.Anemia
- Iron studies - chronic disease
- Check B12, folate - normal
- Heme test positive 01/30/25
- Hgb stable
4. Alcohol use disorder
- Patient without signs of alcohol withdrawal
- Completed phenobarbital taper
Discharge Plan
-
Patient Disposition: Acute Rehab Facility
Discharge Diagnosis/Procedures: Lactic acidosis, alcohol intoxication, sepsis secondary to ulcers
Condition: Good
Diet: Regular
Activity: As tolerated
Driving Restrictions: Not until seen by your Dr
Bathing Restrictions: OK to Shower
Other Services: VN
Activity Restrictions/Additional Instructions:
Wound Care Instructions Left and Right Thighs- Clean with NS or soap and water. Apply Extra Strength Desitin to raw, open areas and cover weeping areas with alginate. Secure with ABD and mesh pants daily and PRN.
Penis Wounds- Apply Vaseline BID and PRN
Right and Left Knees-Clean with normal saline or soap and water and cover with Xeroform, ABD and wrap with loreta. Change daily.
Areas of MASD of groin, perineum, bilateral thighs- Apply Extra Strength Desenex BID and PRN.
Follow up at wound care center call for an appointment.
Instructions: Alcohol and your health
Referrals:
Salvador Li MD [Active] - (return to GI office in 3-4 weeks for anemia and consider EGD/colonoscopy )
UNKNOWN,NO INTERVIEW [Family Provider] -
Additional Discharge Medication Instructions: discontinue xanax
Prescriptions:
New
escitalopram oxalate 10 mg Tablet
10 mg PO DAILY 30 Days Qty: 30 1RF
thiamine mononitrate (vit B1) 100 mg Tablet
100 mg PO DAILY 30 Days Qty: 30 0RF
doxepin 25 mg capsule
25 mg PO DAILY 30 Days Qty: 30 1RF
Continued
metoprolol tartrate 25 mg Tablet
25 mg PO BID Qty: 0 0RF
Discontinued
paroxetine HCl 20 mg tablet
20 mg PO DAILY
doxepin 75 mg Capsule
75 mg PO DAILY
alprazolam [Xanax] 0.5 mg Tablet
0.5 mg PO DAILYPRN PRN (Reason: anxiety)
Discharge Orders:
Discharge Patient (As Directed); Ordered 02/03/25
Ordered By: Leila Conteh
Discharge Date and Time
Discharge Date/Time: 02/03/25 14:47
Print Language: DJIBOUTIAN

Documented by User: Landen Jean-Baptiste MD 02/05/25 00:42
Discharge Summary
Discharge Data
Date of Admission: 01/24/25
Date of Discharge: 02/05/25
Discharge Plan
-
Patient Disposition: Acute Rehab Facility
Discharge Diagnosis/Procedures: Lactic acidosis, alcohol intoxication, sepsis secondary to ulcers
Condition: Good
Diet: Regular
Activity: As tolerated
Driving Restrictions: Not until seen by your Dr
Bathing Restrictions: OK to Shower
Other Services: VN
Activity Restrictions/Additional Instructions:
Wound Care Instructions Left and Right Thighs- Clean with NS or soap and water. Apply Extra Strength Desitin to raw, open areas and cover weeping areas with alginate. Secure with ABD and mesh pants daily and PRN.
Penis Wounds- Apply Vaseline BID and PRN
Right and Left Knees-Clean with normal saline or soap and water and cover with Xeroform, ABD and wrap with loreta. Change daily.
Areas of MASD of groin, perineum, bilateral thighs- Apply Extra Strength Desenex BID and PRN.
Follow up at wound care center call for an appointment.
Instructions: Alcohol and your health
Referrals:
Salvador Li MD [Active] - (return to GI office in 3-4 weeks for anemia and consider EGD/colonoscopy )
UNKNOWN,NO INTERVIEW [Family Provider] -
Additional Discharge Medication Instructions: discontinue xanax
Prescriptions:
New
escitalopram oxalate 10 mg Tablet
10 mg PO DAILY 30 Days Qty: 30 1RF
thiamine mononitrate (vit B1) 100 mg Tablet
100 mg PO DAILY 30 Days Qty: 30 0RF
doxepin 25 mg capsule
25 mg PO DAILY 30 Days Qty: 30 1RF
Continued
metoprolol tartrate 25 mg Tablet
25 mg PO BID Qty: 0 0RF
Discontinued
paroxetine HCl 20 mg tablet
20 mg PO DAILY
doxepin 75 mg Capsule
75 mg PO DAILY
alprazolam [Xanax] 0.5 mg Tablet
0.5 mg PO DAILYPRN PRN (Reason: anxiety)
Discharge Orders:
Discharge Patient (As Directed); Ordered 02/03/25
Ordered By: Leila Conteh
Discharge Date and Time
Discharge Date/Time: 02/03/25 14:47
Print Language: DJIBOUTIAN
== END 2025-02-03 14:47 | DRG 872 ==
LOC: 4 WEST ACU 22:49
PROVIDERS: Nurse Practitioner Adult Health; Nurse Practitioner Family; Physician Assistant; Physician Assistant Medical; ADMITTING PHYSICIAN Internal Medicine; ATTENDING PHYSICIAN Family Medicine; CONSULT PHYSICIAN Internal Medicine; CONSULT PHYSICIAN Internal Medicine Infectious Disease; CONSULT PHYSICIAN Psychiatry & Neurology Psychiatry; CONSULT PHYSICIAN Specialist; CONSULT PHYSICIAN Surgery; EMERGENCY PHYSICIAN Emergency Medicine
DX: A41.9 Sepsis, unspecified organism (principal); L03.116 Cellulitis of left lower limb; L03.115 Cellulitis of right lower limb; E87.1 Hypo-osmolality and hyponatremia; F10.239 Alcohol dependence with withdrawal, unspecified; Z59.02 Unsheltered homelessness; B87.9 Myiasis, unspecified; D63.8 Anemia in other chronic diseases classified elsewhere; J98.2 Interstitial emphysema; K76.0 Fatty (change of) liver, not elsewhere classified; K70.9 Alcoholic liver disease, unspecified; F32.A Depression, unspecified; F41.9 Anxiety disorder, unspecified; E87.6 Hypokalemia; Z87.891 Personal history of nicotine dependence; Z79.899 Other long term (current) drug therapy; I10 Essential (primary) hypertension; K82.8 Other specified diseases of gallbladder; E88.2 Lipomatosis, not elsewhere classified; E88.09 Other disorders of plasma-protein metabolism, not elsewhere classified; I48.0 Paroxysmal atrial fibrillation; N28.9 Disorder of kidney and ureter, unspecified; L89.212 Pressure ulcer of right hip, stage 2; L89.222 Pressure ulcer of left hip, stage 2
CPT/HCPCS: 71045; 73701; 74177; 80048; 80051; 80053; 80202; 80306; 80307; 81003; 81015; 82077; 82248; 82550; 82607; 82728; 82746; 82805; 82962; 82977; 83036; 83540; 83550; 83605; 83735; 83935; 84100; 84300; 85025; 85027; 85610; 85730; 87040; 87045; 87046; 87070; 87086; 87149; 87186; 87205; 87324; 87427; 87449; 87798; 93005; 96361; 96365; 96366; 96367; 96375; 97163; 97167; 97530; 97535; 99285; Q9967